=== PATIENT | female | born 1955 | race Caucasian/White ===

== ENCOUNTER → 2016-12-25 | Outpatient (CLI) | payer MEDICARE, OTHER ==
--- NOTE | 2016-12-25 11:13 | CT ---
EXAMINATION TYPE: CT urogram wo/w con DATE OF EXAM: 12/25/2016 8:51 AM COMPARISON: 10/27/2014 HISTORY: microscopic hematuria CT DLP: 833.8 mGycm Automated exposure control for dose reduction was used. TECHNIQUE: Axial images 5 mm thick sections. Postcontrast, reconstructed, and 3-D reconstructed image s performed on the DLS computer by the technologist are filmed and presented. FINDINGS: There appears to be symmetrical excretion through the bilateral kidneys. Proximal ureters visualized. Normal. The distal right ureter within the [id number] is normal. The distal left ureter is somewh at more limited but on additional sequences appears normal. Urinary bladder is visualized appears nor mal. Limited CT CT sections are obtained through the lung bases. Minimal atelectasis is within the depend ent right lung base. CT ABDOMEN: Liver and spleen are normal density without discrete masses or cysts. Gallbladder surgica lly absent. The pancreas is normal. Aorta and inferior vena cava are normal. Loops of bowel within t he abdomen and pelvis without oral contrast appear normal. Kidneys appear normal without masses cysts or hydronephrosis. No hydroureter is evident. No renal sto joya are identified. There is prompt uptake and excretion of contrast through the kidneys. A right ur eteral jet is identified during the exam. Loops of bowel are limited due to lack oral contrast. No suspicious abnormalities evident. Note is ma de of some diverticulosis within the sigmoid colon. Uterus appears normal. Adnexal regions are clear. IMPRESSION: NORMAL CT UROGRAM.
== END ==
LOC: RADCTMAIN 07:25
PROVIDERS: ATTEND Urology
DX: R31.29 Other microscopic hematuria (principal)
CPT/HCPCS: 74178; 74400; Q9967

== ENCOUNTER → 2017-09-06 | Outpatient (CLI) | payer MEDICARE, OTHER ==
--- NOTE | 2017-09-09 07:53 | MM ---
Reason for exam: screening (asymptomatic). Last mammogram was performed 1 year and 7 months ago. History: Patient is postmenopausal and has history of other cancer at age 62. Family history of breast cancer in paternal grandmother. MG discontinued stereo core RT of the right breast, March 21, 2016. Physical Findings: A clinical breast exam by your physician is recommended on an annual basis and results should be correlated with mammographic findings. MG 3D Diag Mammo W/Cad KRISTI Bilateral CC and MLO view(s) were taken. Prior study comparison: February 14, 2016, mammogram. February 10, 2016, mammogram. The breast tissue is heterogeneously dense. This may lower the sensitivity of mammography. The questioned upper outer quadrant focal asymmetry right breast is unchanged. On MLO it has the appearance of normal fibroglandular tissue. No significant new findings when compared with previous films. These results were verbally communicated with the patient and result sheet given to the patient on 09/06/17. ASSESSMENT: Negative, BI-RAD 1 RECOMMENDATION: Routine screening mammogram of both breasts in 1 year.
== END | disposition home or self-care (01) ==
LOC: RADMAMWWP 13:04
PROVIDERS: ATTEND Family Medicine
DX: R92.2 Inconclusive mammogram (principal)
CPT/HCPCS: G0204; G0279

== ENCOUNTER 2019-06-19 11:20 | Day surgery (SDC) | payer MEDICARE, OTHER ==
[2019-06-17 08:54] VITALS: BMI 23.2
[~2019-06-19 11:20] MED LIST: LACTATED RINGERS 1,000 ML IV SCH; LIDOCAINE 1% 20 ML VIAL (10MG/ML) FOR IV START INTRADERMA PRN
[2019-06-19 11:38] VITALS: RESP 16; TEMP 98.6
[2019-06-19] MEDS ORDERED: ONDANSETRON 4 MG/2 ML VIAL IVP ONE (11:44)
[2019-06-19] MEDS ORDERED: LIDOCAINE 1% INJ 10MG/ML (20 ML MDV) ONE (11:46)
[2019-06-19] MEDS ORDERED: PROPOFOL 10 MG/ML 20 ML VIAL IV ONE (11:46)
--- NOTE | 2019-06-19 11:56 | P.GSHP ---
History of Present Illness H&P Date: 06/19/19 Chief Complaint: Change in bowel habits 64-year-old female here today for colonoscopy. Patient describes frequent diarrhea. Seems to be aggravated by certain foods. History of prior cholecystectomy. No rectal bleeding or melena. Last colonoscopy 10 years ago per the study was normal. Family history of celiac disease. Past Medical History Past Medical History: Cancer, COPD, Rheumatoid Arthritis (RA) Additional Past Medical History / Comment(s): BLADDER CANCER History of Any Multi-Drug Resistant Organisms: None Reported Past Surgical History: Bladder Surgery, Section, Cholecystectomy, Orthopedic Surgery, Tubal Ligation Additional Past Surgical History / Comment(s): SURGERY SX FOR BLADDER CANCER. COLONOSCOPY/EGD. RT WRIST TENDON TRANSFER. RT KNEE SX Past Anesthesia/Blood Transfusion Reactions: Postoperative Nausea & Vomiting (PONV) Smoking Status: Current every day smoker - Past Family History Mother Family Medical History: No Reported History Medications and Allergies Home Medications Medication Instructions Recorded Confirmed Type Naproxen Sodium [Aleve] 220 mg PO BID 06/17/19 06/19/19 History Escitalopram [Lexapro] 10 mg PO DAILY 06/19/19 06/19/19 History Allergies Allergy/AdvReac Type Severity Reaction Status Date / Time No Known Allergies Allergy Verified 06/19/19 11:33 Surgical - Exam Vital Signs Temp Pulse Resp BP Pulse Ox 98.6 F 104 H 16 129/92 99 06/19/19 11:37 06/19/19 11:37 06/19/19 11:37 06/19/19 11:37 06/19/19 11:37 Physical exam: General: Well-developed, well-nourished HEENT: Normocephalic, sclerae nonicteric Abdomen: Nontender, nondistended Extremities: No edema Neuro: Alert and oriented Assessment and Plan (1) Change in bowel habits Narrative/Plan: Will proceed with colonoscopy at this time. Current Visit: Yes Status: Acute Code(s): R19.4 - CHANGE IN BOWEL HABIT SNOMED Code(s): 692311192
--- NOTE | 2019-06-19 12:18 | P.PCN ---
Date of Procedure: 06/19/19 Procedure(s) Performed: PREOPERATIVE DIAGNOSIS: Change in bowel habits, chronic diarrhea POSTOPERATIVE DIAGNOSIS: Diverticulosis PROCEDURE: Colonoscopy with random biopsy ANESTHESIA: [facility] [place] SURGEON: Kenneth Polo M.D. SPECIMENS: Random biopsies ENDOSCOPIC PROCEDURE: The patient was placed on the endoscopy table in the left decubitus position. The Olympus colonoscope was inserted into the anus and passed under direct visualization to the base of the cecum. The appendiceal orifice was visualized. From that point the scope was slowly withdrawn inspecting all surfaces carefully. There were no neoplastic inflammatory or polypoid lesions throughout the cecum, ascending, transverse, descending, sigmoid and rectum. There was artery left-sided diverticulosis noted. Random biopsies were taken throughout the colon to evaluate for microscopic colitis. Digital rectal examination was normal. The patient was taken to the recovery room in stable condition per anesthesia guidelines. RECOMMENDATIONS: Await biopsy results. Add Davidaran for complaints of diarrhea.
[2019-06-19 12:36] VITALS: BP 129/68; PULSE 72
== END 2019-06-19 12:55 | disposition home or self-care (01) ==
LOC: ORWHC2ENDO 11:20
PROVIDERS: ATTEND Surgery
DX: K57.30 Diverticulosis of large intestine without perforation or abscess without bleeding (principal); F17.200 Nicotine dependence, unspecified, uncomplicated; M06.9 Rheumatoid arthritis, unspecified; Z79.899 Other long term (current) drug therapy; Z85.51 Personal history of malignant neoplasm of bladder; Z90.49 Acquired absence of other specified parts of digestive tract; F39 Unspecified mood [affective] disorder
CPT/HCPCS: 88305; 45380; J2405; J2001; J2704

== ENCOUNTER → 2020-03-23 | Outpatient (CLI) | payer MEDICARE ==
--- NOTE | 2020-03-23 10:50 | XR ---
EXAMINATION TYPE: XR IVP DATE OF EXAM: 03/23/2020 COMPARISON: None HISTORY: Bladder cancer, hematuria TECHNIQUE: Receptionist Clerk view, overhead radiographs. FINDINGS: Single Receptionist Clerk view was obtained. Scoliosis is present. Receptionist Clerk view is noncontributory. Following the intravenous administration of contrast multiple overhead radiographs were obtained. There is prompt uptake and excretion of the contrast through the bilateral kidneys. Renal calyces, in fundibula and renal pelves appear normal. No filling defects are evident. Sequential images through the ureters are performed. Both oblique views are obtained. On sequential i mages the ureters appear normal without filling defects. There is likely a retrovascular ureter on th e right at the level of the pelvic inlet. Urinary bladder as visualized appears normal. No obvious filling defect is evident. There appears to be normal post void volume. IMPRESSION: 1. Normal IVP. 2. A suspicious etiology to account for the patient's hematuria is not identified.
== END | disposition home or self-care (01) ==
LOC: RADFLMAIN 09:02
PROVIDERS: ATTEND Urology
DX: R31.1 Benign essential microscopic hematuria (principal); C67.9 Malignant neoplasm of bladder, unspecified
CPT/HCPCS: 74400; Q9967

== ENCOUNTER → 2020-09-20 | Outpatient (CLI) | payer MEDICARE ==
[2020-09-20 12:39] LABS: African American GFR (CKD) >90 (>60 ml/min/1.73 sqM); Blood Urea Nitrogen 23 mg/dL (7-17); Non-African American GFR(CKD) >90 (>60 ml/min/1.73 sqM)
--- NOTE | 2020-09-20 14:18 | CT ---
EXAMINATION TYPE: CT urogram wo/w con DATE OF EXAM: 09/20/2020 HISTORY: Hematuria, hx of bladder CA CT DLP: 1947mGycm Automated Exposure Control for Dose Reduction was Utilized. CONTRAST: CT scan of the abdomen and pelvis is performed without oral and without and with IV Contrast, patient injected with 100 mL of Isovue 300. Urogram protocol with 3-D reconstructed images created on an [employer] workstation and reviewed. COMPARISON: CT urogram December 25, 2016. FINDINGS: KUB: Noncontrast images show no renal calculi bilaterally on current study. Postcontrast images show symmetric cortical medullary uptake and excretion without concerning solid or cystic renal mass or hy dronephrosis seen bilaterally. Visualized portion of both ureters show no suspicious mass or calculus . Incomplete opacification of bilateral ureters especially left noted. Few scattered bilateral pelvic phleboliths redemonstrated. No suspicious intraluminal mass or calculus in the bladder. LUNG BASES: Mild bibasilar linear scarring and/or atelectasis LIVER/GB: Cholecystectomy clips are redemonstrated. PANCREAS: No significant abnormality is seen. SPLEEN: No significant abnormality is seen. ADRENALS: No significant abnormality is seen. BOWEL: Some diverticula scattered throughout the colon greatest in the sigmoid colon. No suspicious b owel dilatation. UTERUS/ADNEXA: Anteverted uterus redemonstrated. LYMPH NODES: No greater than 1cm abdominal or pelvic lymph nodes are appreciated. OSSEOUS STRUCTURES: There is levoconvex scoliosis centered at L3-L4 level. Moderate to severe disc sp azeb narrowing and vacuum disc phenomenon L4-L5 and L5-S1 levels. OTHER: Mild Calcified plaque of the aorta extends into branch vessels. IMPRESSION: No suspicious new mass or calculus or source of hematuria identified. No significant bellamy ge from prior study. LUNG BASES: No significant abnormality is appreciated. LIVER/GB: No significant abnormality is appreciated. PANCREAS: No significant abnormality is seen. SPLEEN: No significant abnormality is seen. ADRENALS: No significant abnormality is seen. KIDNEYS: No significant abnormality is seen. BOWEL: No significant abnormality is seen. UTERUS/ADNEXA: No gross abnormality seen. LYMPH NODES: No greater than 1cm abdominal or pelvic lymph nodes are appreciated. OSSEOUS STRUCTURES: No significant abnormality is seen. OTHER: No significant additional abnormality is seen. IMPRESSION: No significant acute finding is seen to account for patient's clinical symptoms.
== END | disposition home or self-care (01) ==
LOC: RADCTMAIN 12:00
PROVIDERS: ATTEND Urology
DX: R31.9 Hematuria, unspecified (principal); D49.4 Neoplasm of unspecified behavior of bladder
CPT/HCPCS: 82565; 84520; 74178; 36415; 74400; Q9967

== ENCOUNTER 2021-04-25 18:35 | Emergency (ER) | payer MEDICARE ==
[2021-04-25 19:01] VITALS: RESP 18
[2021-04-25] MEDS ORDERED: methylPREDNISolone SOD SUCCI 125 MG/2 ML VIAL IM ONE (20:12)
--- NOTE | 2021-04-25 20:14 | ED ---
General Adult HPI - General Chief complaint: Recheck/Abnormal Lab/Rx Stated complaint: Rheumatoid Arthritis Flare-Up Time Seen by Provider: 04/25/21 19:12 Source: patient Mode of arrival: ambulatory Limitations: no limitations - History of Present Illness Initial comments: 65-year-old female patient presents to the emergency department today for evaluation of joint pain. States she is a history of rheumatoid arthritis and feels that she is having a flare. States symptoms of worsening symptoms around December. States that she generally just takes Aleve for her symptoms. Does not currently see a sports management professor nor does she have a primary care physician. She states that she has pain in her neck, shoulders, wrists, and ankles. States this is consistent with her usual rheumatoid arthritis symptoms. Denies any fever or chills. Denies any redness over the joints. Denies any injuries. Patient denies any recent rash, cough, shortness of breath, chest pain, abdominal pain, nausea, vomiting, diarrhea, constipation, numbness, tingling, dizziness, weakness, hematuria, dysuria, urinary urgency, urinary frequency, headache, visual changes, or any other complaints. - Related Data Home Medications Medication Instructions Recorded Confirmed Naproxen Sodium [Aleve] 220 mg PO BID 06/17/19 06/19/19 Escitalopram [Lexapro] 10 mg PO DAILY 06/19/19 06/19/19 Previous Rx's Medication Instructions Recorded Cholestyramine (with Sugar) 4 gm PO AC-TID #30 gm 06/19/19 [Questran Powder] predniSONE 50 mg PO DAILY #5 tablet 04/25/21 Allergies Allergy/AdvReac Type Severity Reaction Status Date / Time No Known Allergies Allergy Verified 04/25/21 18:58 Review of Systems ROS Statement: Those systems with pertinent positive or pertinent negative responses have been documented in the HPI. ROS Other: All systems not noted in ROS Statement are negative. Past Medical History Past Medical History: Cancer, COPD, Rheumatoid Arthritis (RA) Additional Past Medical History / Comment(s): BLADDER CANCER History of Any Multi-Drug Resistant Organisms: None Reported Past Surgical History: Bladder Surgery, Section, Cholecystectomy, Orthopedic Surgery, Tubal Ligation Additional Past Surgical History / Comment(s): SURGERY SX FOR BLADDER CANCER. COLONOSCOPY/EGD. RT WRIST TENDON TRANSFER. RT KNEE SX Past Anesthesia/Blood Transfusion Reactions: Postoperative Nausea & Vomiting (PONV) Past Psychological History: Anxiety, Depression Past Alcohol Use History: None Reported Past Drug Use History: None Reported - Past Family History Mother Family Medical History: No Reported History General Exam Limitations: no limitations General appearance: alert, in no apparent distress, other (This is a well- developed, well-nourished adult female patient in no acute distress. Vital signs upon presentation are temperature 97.3F, pulse 98, respirations 18, blood pressure 132/77, pulse ox 98% on room air.) ENT exam: Present: normal exam, normal oropharynx, mucous membranes moist Respiratory exam: Present: normal lung sounds bilaterally. Absent: respiratory distress, wheezes, rales, rhonchi, stridor Cardiovascular Exam: Present: regular rate, irregular rhythm, normal heart sounds. Absent: systolic murmur, diastolic murmur, rubs, gallop, clicks GI/Abdominal exam: Present: soft, normal bowel sounds. Absent: distended, tenderness, guarding, rebound, rigid Extremities exam: Present: normal inspection, full ROM, normal capillary refill, joint swelling, other (Skin to the arms and legs is pink, warm, dry. Cap refill less than 3 seconds. Radial pulses 2+ Pedal and posttibial pulses are 2+). Absent: tenderness, pedal edema, calf tenderness Neurological exam: Present: alert, oriented X3, CN II-XII intact Psychiatric exam: Present: normal affect, normal mood Skin exam: Present: warm, dry, intact, normal color. Absent: rash Course Vital Signs 04/25/21 04/25/21 18:58 20:31 Temperature 97.3 F L 97.9 F Pulse Rate 98 94 Respiratory 18 18 Rate Blood Pressure 132/77 132/71 O2 Sat by Pulse 98 98 Oximetry EKG Findings - EKG Comments: EKG Findings:: EKG obtained at 2005 shows normal sinus rhythm with a ventricular rate of 90, TN interval 144, QRS duration 84, QT 378, QTC 462. No evidence of ST elevation or depression Medical Decision Making - Medical Decision Making 65-year-old female patient presented for evaluation of joint pain. Has history of rheumatoid arthritis. Physical examination did reveal some joint swelling with no overlying erythema. She is afebrile with normal vital signs. Heart sounds were irregular so EKG was obtained that showed sinus rhythm with no abnormalities. She will be discharged with burst of steroids. She is given IM site Medrol here. She is instructed to follow-up with a primary care physician sports management professor as soon as possible. Return parameters were discussed in detail. She verbalizes understanding and agrees with this plan. Case discussed with my attending Dr. Munroe. Disposition Clinical Impression: Rheumatoid arthritis flare Disposition: HOME SELF-CARE Condition: Good Instructions (If sedation given, give patient instructions): Rheumatoid Art hritis (ED) Additional Instructions: Take medications as directed. Make sure you take steroids with a meal. Follow- up with the sports management professor as soon as possible. Establish with a primary care physician. Return for any new, worsening, or concerning symptoms. Prescriptions: predniSONE 50 mg PO DAILY #5 tablet Is patient prescribed a controlled substance at d/c from ED?: No Referrals: None,Stated [Primary Care Provider] - 1-2 days Time of Disposition: 20:14
[2021-04-25] MEDS ORDERED: DICLOFENAC SODIUM GEL 100 GM TUBE TOPICAL STA (20:26)
[2021-04-25 20:32] VITALS: BP 132/71; PULSE 94; TEMP 97.9
== END 2021-04-25 20:42 | disposition home or self-care (01) ==
LOC: EC 18:35
DX: M06.9 Rheumatoid arthritis, unspecified (principal); J44.9 Chronic obstructive pulmonary disease, unspecified; F32.9 Major depressive disorder, single episode, unspecified; F41.9 Anxiety disorder, unspecified
CPT/HCPCS: 93005; 99283; 96372; J2930

== ENCOUNTER 2022-05-24 18:30 | Emergency (ER) | payer MEDICARE ==
[2022-05-24 19:00] VITALS: RESP 16; TEMP 98.4
[2022-05-24] MEDS ORDERED: SODIUM CHLORIDE 0.9% 500 ML 500 ML IV STA (19:46)
--- NOTE | 2022-05-24 19:46 | ED ---
Abdominal Pain HPI - General Chief Complaint: Abdominal Pain Stated Complaint: abd pain Time Seen by Provider: 05/24/22 19:37 Source: patient, RN notes reviewed, old records reviewed Mode of arrival: ambulatory Limitations: no limitations - History of Present Illness Initial Comments: This is a well-appearing 67-year-old female that presents alert and oriented 4 with complaints of abdominal bloating for the past few months. Patient states that she has seen her primary care doctor who states thatit may be an ulcer. She has been trying Metamucil with no results. She does have a history of a cholecystectomy. She states she had a bladder resection for bladder cancer [address] Combs. She denies any fevers. Denies nausea or vomiting. She states that she is concerned that the cancer may be spreading causinsg her bloating. MD Complaint: abdominal pain -: month(s) (2) Location: diffuse Radiation: none Severity scale (1-10): 3 Quality: fullness, other (bloated) Consistency: constant Improves With: nothing Worsens With: nothing Context: recent surgery/procedure (Bladder resection for bladder cancer 3 weeks ago) Associated Symptoms: denies other symptoms - Related Data Home Medications Medication Instructions Recorded Confirmed Naproxen Sodium [Aleve] 220 mg PO BID 06/17/19 06/19/19 Escitalopram [Lexapro] 10 mg PO DAILY 06/19/19 06/19/19 Previous Rx's Medication Instructions Recorded Cholestyramine (with Sugar) 4 gm PO AC-TID #30 gm 06/19/19 [Questran Powder] predniSONE 50 mg PO DAILY #5 tablet 04/25/21 Allergies Allergy/AdvReac Type Severity Reaction Status Date / Time No Known Allergies Allergy Verified 05/24/22 18:59 Review of Systems ROS Statement: Those systems with pertinent positive or pertinent negative responses have been documented in the HPI. ROS Other: All systems not noted in ROS Statement are negative. Past Medical History Past Medical History: Cancer, COPD, Rheumatoid Arthritis (RA) Additional Past Medical History / Comment(s): BLADDER CANCER History of Any Multi-Drug Resistant Organisms: None Reported Past Surgical History: Bladder Surgery, Section, Cholecystectomy, Orthopedic Surgery, Tubal Ligation Additional Past Surgical History / Comment(s): SURGERY SX FOR BLADDER CANCER. COLONOSCOPY/EGD. RT WRIST TENDON TRANSFER. RT KNEE SX Past Anesthesia/Blood Transfusion Reactions: Postoperative Nausea & Vomiting (PONV) Past Psychological History: Anxiety, Depression Smoking Status: Current every day smoker Past Alcohol Use History: None Reported Past Drug Use History: None Reported - Past Family History Mother Family Medical History: No Reported History General Exam Limitations: no limitations General appearance: alert, in no apparent distress Head exam: Present: atraumatic, normocephalic Eye exam: Absent: scleral icterus, conjunctival injection Neck exam: Present: full ROM. Absent: tenderness, meningismus Respiratory exam: Present: normal lung sounds bilaterally. Absent: respiratory distress, accessory muscle use Cardiovascular Exam: Present: regular rate GI/Abdominal exam: Present: soft, distended, normal bowel sounds. Absent: tenderness, guarding, rebound, rigid Extremities exam: Present: full ROM, normal capillary refill. Absent: tenderness, pedal edema Back exam: Absent: tenderness, CVA tenderness (R), CVA tenderness (L) Neurological exam: Present: alert, oriented X3 Psychiatric exam: Present: normal affect, normal mood Skin exam: Present: warm, dry, normal color. Absent: cyanosis, diaphoretic, petechiae, pallor Course Vital Signs 05/24/22 05/24/22 18:56 21:54 Temperature 98.4 F Pulse Rate 94 72 Respiratory 16 16 Rate Blood Pressure 148/72 130/90 O2 Sat by Pulse 99 95 Oximetry Medical Decision Making - Medical Decision Making Patient presents with 2 months of abdominal bloating. She does have a history of bladder surgery with a resection approximately [address] Combs Labs show no evidence of leukocytosis. Electrolytes are unremarkable. Urinalysis shows no evidence of infection or dehydration. She denies any vomiting or diarrhea. CT of the abdomen and pelvis with contrast shows no acute abnormality. There is hepatic steatosis with evidence of cholecystectomy. Patient states that she also weaned herself off her Cymbalta recently which may be the cause of her symptoms. Vital signs are stable. I did direct her to follow up with primary care doctor within the next week. Case discussed with Dr. Chamorro - Lab Data Result diagrams: 05/24/22 20:05/24/22 20:01 Lab Results 05/24/22 05/24/22 05/24/22 Range/Units 20:01 20:01 20:01 WBC 9.9 (3.8-10.6) k/uL RBC 4.95 (3.80-5.40) m/uL Hgb 14.4 (11.4-16.0) gm/dL Hct 45.0 (34.0-46.0) % MCV 91.0 (80.0-100.0) fL MCH 29.0 (25.0-35.0) pg MCHC 31.9 (31.0-37.0) g/dL RDW 14.0 (11.5-15.5) % Plt Count 244 (150-450) k/uL MPV 8.1 Neutrophils % 73 % Lymphocytes % 17 % Monocytes % 5 % Eosinophils % 2 % Basophils % 1 % Neutrophils # 7.2 (1.3-7.7) k/uL Lymphocytes # 1.6 (1.0-4.8) k/uL Monocytes # 0.5 (0-1.0) k/uL Eosinophils # 0.2 (0-0.7) k/uL Basophils # 0.1 (0-0.2) k/uL PT 9.8 (9.0-12.0) sec INR 0.9 (<1.2) APTT 25.5 (22.0-30.0) sec Sodium (137-145) mmol/L Potassium (3.5-5.1) mmol/L Chloride (98-107) mmol/L Carbon Dioxide (22-30) mmol/L Anion Gap mmol/L BUN (7-17) mg/dL Creatinine (0.52-1.04) mg/dL Est GFR (CKD-EPI)AfAm (>60 ml/min/1.73 sqM) Est GFR (CKD-EPI)NonAf (>60 ml/min/1.73 sqM) Glucose (74-99) mg/dL Plasma Lactic Acid Valentín (0.7-2.0) mmol/L Calcium (8.4-10.2) mg/dL Total Bilirubin (0.2-1.3) mg/dL AST (14-36) U/L ALT (4-34) U/L Alkaline Phosphatase (38-126) U/L Total Protein (6.3-8.2) g/dL Albumin (3.5-5.0) g/dL Amylase (30-110) U/L Lipase (23-300) U/L Urine Color Colorless Urine Appearance Clear (Clear) Urine pH 6.0 (5.0-8.0) Ur Specific Nevis 1.003 (1.001-1.035) Urine Protein Negative (Negative) Urine Glucose (UA) Negative (Negative) Urine Ketones Negative (Negative) Urine Blood Small H (Negative) Urine Nitrite Negative (Negative) Urine Bilirubin Negative (Negative) Urine Urobilinogen <2.0 (<2.0) mg/dL Ur Leukocyte Esterase Negative (Negative) Urine RBC 1 (0-5) /hpf Urine WBC <1 (0-5) /hpf Ur Squamous Epith Cells 1 (0-4) /hpf 05/24/22 05/24/22 Range/Units 20:01 20:01 WBC (3.8-10.6) k/uL RBC (3.80-5.40) m/uL Hgb (11.4-16.0) gm/dL Hct (34.0-46.0) % MCV (80.0-100.0) fL MCH (25.0-35.0) pg MCHC (31.0-37.0) g/dL RDW (11.5-15.5) % Plt Count (150-450) k/uL MPV Neutrophils % % Lymphocytes % % Monocytes % % Eosinophils % % Basophils % % Neutrophils # (1.3-7.7) k/uL Lymphocytes # (1.0-4.8) k/uL Monocytes # (0-1.0) k/uL Eosinophils # (0-0.7) k/uL Basophils # (0-0.2) k/uL PT (9.0-12.0) sec INR (<1.2) APTT (22.0-30.0) sec Sodium 142 (137-145) mmol/L Potassium 4.0 (3.5-5.1) mmol/L Chloride 106 (98-107) mmol/L Carbon Dioxide 26 (22-30) mmol/L Anion Gap 10 mmol/L BUN 14 (7-17) mg/dL Creatinine 0.86 (0.52-1.04) mg/dL Est GFR (CKD-EPI)AfAm 82 (>60 ml/min/1.73 sqM) Est GFR (CKD-EPI)NonAf 71 (>60 ml/min/1.73 sqM) Glucose 81 (74-99) mg/dL Plasma Lactic Acid Valentín 0.8 (0.7-2.0) mmol/L Calcium 9.3 (8.4-10.2) mg/dL Total Bilirubin 0.3 (0.2-1.3) mg/dL AST 24 (14-36) U/L ALT 15 (4-34) U/L Alkaline Phosphatase 102 (38-126) U/L Total Protein 7.3 (6.3-8.2) g/dL Albumin 4.4 (3.5-5.0) g/dL Amylase 89 (30-110) U/L Lipase 104 (23-300) U/L Urine Color Urine Appearance (Clear) Urine pH (5.0-8.0) Ur Specific Nevis (1.001-1.035) Urine Protein (Negative) Urine Glucose (UA) (Negative) Urine Ketones (Negative) Urine Blood (Negative) Urine Nitrite (Negative) Urine Bilirubin (Negative) Urine Urobilinogen (<2.0) mg/dL Ur Leukocyte Esterase (Negative) Urine RBC (0-5) /hpf Urine WBC (0-5) /hpf Ur Squamous Epith Cells (0-4) /hpf Disposition Clinical Impression: Abdominal pain Disposition: HOME SELF-CARE Condition: Good Instructions (If sedation given, give patient instructions): Abdominal Pain (ED) Additional Instructions: Please follow-up with your primary care doctor within the next week to discuss your symptoms of bloating and abdominal pain. Let your primary care doctor know that you stopped taking your Cymbalta. Today your CT scan and blood work showed no areas of concern. Return to the emergency room with any new or concerning symptoms. Is patient prescribed a controlled substance at d/c from ED?: No Referrals: Paul Villanueva MD [Primary Care Provider] - 1-2 days Time of Disposition: 21:41
[2022-05-24] MEDS ORDERED: MORPHINE SULFATE 2 MG/ML SYRINGE IVP ONE (19:48)
[2022-05-24 20:15] LABS: Basophils # (A) 0.1 k/uL (0-0.2); Basophils % (A) 1 %; Eosinophils # (A) 0.2 k/uL (0-0.7); Eosinophils % (A) 2 %; HGB 14.4 gm/dL (11.4-16.0); Lymphocytes # (A) 1.6 k/uL (1.0-4.8); Lymphocytes % (A) 17 %; MCHC 31.9 g/dL (31.0-37.0); Mean Platelet Volume 8.1; Monocytes # (A) 0.5 k/uL (0-1.0); Monocytes % (A) 5 %; Neutrophils # (A) 7.2 k/uL (1.3-7.7); Neutrophils % (A) 73 %; Platelet Count 244 k/uL (150-450); RBC 4.95 m/uL (3.80-5.40); WBC 9.9 k/uL (3.8-10.6)
[2022-05-24 20:16] LABS: Appearance,Urine Clear (Clear); Bilirubin,Urine Negative (Negative); Blood,Urine Small (Negative); Color,Urine Colorless; Glucose,Urine (UA) Negative (Negative); Ketones,Urine Negative (Negative); Leukocyte Esterase,Urine Negative (Negative); Nitrite,Urine Negative (Negative); Protein,Urine Negative (Negative); RBC,Urine 1 /hpf (0-5); Specific Gravity,Urine 1.003 (1.001-1.035); Squamous Epithelial Cell,Urine 1 /hpf (0-4); Urobilinogen,Urine <2.0 mg/dL (<2.0); WBC,Urine <1 /hpf (0-5)
[2022-05-24 20:24] LABS: Albumin 4.4 g/dL (3.5-5.0); Calcium 9.3 mg/dL (8.4-10.2); Total Bilirubin 0.3 mg/dL (0.2-1.3); Total Protein 7.3 g/dL (6.3-8.2)
[2022-05-24 20:59] LABS: INR 0.9 (<1.2); Partial Thromboplastin Time 25.5 sec (22.0-30.0); Prothrombin Time 9.8 sec (9.0-12.0)
--- NOTE | 2022-05-24 21:20 | CT ---
EXAMINATION TYPE: CT abdomen pelvis w con DATE OF EXAM: 05/24/2022 COMPARISON: 12/25/2016 HISTORY: UPPER ABD BLOATING & PRESSURE X FEW MONTHS CT DLP: 675 mGycm Automated exposure control for dose reduction was used. TECHNIQUE: Helical acquisition of images was performed from the lung bases through the pelvis. CONTRAST: Performed without Oral Contrast and with IV Contrast, patient injected with 100 mL of Isovue 300. FINDINGS: LUNG BASES: No significant abnormality is appreciated. LIVER/GB: No acute abnormality is appreciated. Cholecystectomy. Common bile duct diameter is 6 mm. PANCREAS: No significant abnormality is seen. SPLEEN: No significant abnormality is seen. ADRENALS: No significant abnormality is seen. KIDNEYS: No significant abnormality is seen. FREE AIR: No free air is visualized. RETROPERITONEAL ADENOPATHY: None visualized REPRODUCTIVE ORGANS: No significant abnormality is seen URINARY BLADDER: No significant abnormality is seen. PELVIC ADENOPATHY: None visualized. OSSEOUS STRUCTURES: No acute abnormality is seen. Mild to moderate lumbar spondylosis with levoconve x curvature. BOWEL: No significant abnormality is seen. OTHER: None IMPRESSION: NO ACUTE ABNORMALITY. HEPATIC STEATOSIS AND CHOLECYSTECTOMY. Lumbar spondylosis with levoconvex curvature.
[2022-05-24 21:55] VITALS: BP 130/90; PULSE 72
== END 2022-05-24 21:55 | disposition home or self-care (01) ==
LOC: EC 18:30
DX: R10.9 Unspecified abdominal pain (principal); R14.0 Abdominal distension (gaseous); F17.200 Nicotine dependence, unspecified, uncomplicated; J44.9 Chronic obstructive pulmonary disease, unspecified; Z90.49 Acquired absence of other specified parts of digestive tract
CPT/HCPCS: 36415; 80053; 82150; 83605; 83690; 85025; 85610; 85730; 81001; 74177; 99284; 96374; 96361; J2270; Q9967

== ENCOUNTER → 2022-06-12 | Outpatient (CLI) | payer MEDICARE ==
--- NOTE | 2022-06-12 13:29 | US ---
EXAMINATION TYPE: US pelvis complete transvag DATE OF EXAM: 06/12/2022 COMPARISON: CT 05/24/2022 CLINICAL HISTORY: N95.0 POSTMENOPAUSAL BLEEDING. Postmenopausal bleeding. Hx of bladder cancer with s urgery. Hx twin gestation. A1. TECHNIQUE: Transvaginal (TV) and Transabdominal (TA) . Transabdominal sonographic images of the pel vis were acquired. Transvaginal sonographic images were medically necessary to better assess the fol lowing anatomy: Uterus and ovaries. Date of LMP: Unknown EXAM MEASUREMENTS: Uterus: 5.4 x 3.8 x 2.7 cm Endometrial Stripe: 0.40 cm Right Ovary: 2.8 x 1.3 x 1.2 cm Left Ovary: Not visualized. 1. Uterus: Anteverted Appears very heterogeneous. Hyperechoic calcified-appearing areas seen, larg est measures: 0.2 x 0.2 x 0.2 cm. 2. Endometrium: Measures 0.40 cm. Difficult to visualize. 3. Right Ovary: Appears wnl 4. Left Ovary: Not visualized. 5. Bilateral Adnexa: Appear wnl. 6. Posterior cul-de-sac: Minimal fluid seen. IMPRESSION: 1. No acute pelvic process. 2. Heterogenous uterine myometrium with echogenic foci. This may relate to uterine fibroids versus a denomyosis. 3. Nonvisualization of left ovary.
== END | disposition home or self-care (01) ==
LOC: RADUSWWP 12:15
PROVIDERS: ATTEND Family Medicine
DX: N95.0 Postmenopausal bleeding (principal)
CPT/HCPCS: 76830; 76856

== ENCOUNTER 2022-10-16 17:31 | Emergency (ER) | payer MEDICARE ==
[2022-10-16 17:40] VITALS: TEMP 98.6
--- NOTE | 2022-10-16 17:44 | ED ---
General Adult HPI <Juanita Harding - Last Filed: 10/16/22 17:35> - General Source: patient, RN notes reviewed Limitations: no limitations <Devan Ramirez - Last Filed: 10/16/22 19:31> - General Chief complaint: Dizziness Stated complaint: light headed - History of Present Illness Initial comments: Patient presents to the emergency room with complaints of lightheadedness ongoing since being placed on methotrexate approximately 2 months ago but her symptoms have worsened recently for approximately 5 days. 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 She reports that she is having some anxiety with the lightheadedness. She is unable to describe the lightheadedness well but denies the room is spinning. She denies any other specific complaints and reports generalized lightheadedness without any associated symptoms. She denies any loss of consciousness, headache or dizziness at that this time. She denies any other past medical history with exception of her rheumatoid arthritis. She denies any known exposure to cold influenza or RSV. (Juanita Harding) Patient reevaluated in the room. Patient states she is feeling better at this time however still anxious and not quite completely normal. Patient has been complaining of palpitations over the past week or 2 with associated lightheadedness. (Devan Ramirez) - Related Data Home Medications Medication Instructions Recorded Confirmed Naproxen Sodium [Aleve] 220 mg PO BID 06/17/19 06/19/19 Escitalopram [Lexapro] 10 mg PO DAILY 06/19/19 06/19/19 Previous Rx's Medication Instructions Recorded Cholestyramine (with Sugar) 4 gm PO AC-TID #30 gm 06/19/19 [Questran Powder] predniSONE 50 mg PO DAILY #5 tablet 04/25/21 Allergies Allergy/AdvReac Type Severity Reaction Status Date / Time No Known Allergies Allergy Verified 10/16/22 17:40 Review of Systems ROS Other: All systems not noted in ROS Statement are negative. <Juanita Harding - Last Filed: 10/16/22 17:35> ROS Other: All systems not noted in ROS Statement are negative. Cardiovascular: Reports: palpitations. Denies: chest pain Neurological: Denies: weakness, confusion Psychiatric: Reports: anxiety <Devan Ramirez - Last Filed: 10/16/22 19:31> ROS Statement: Those systems with pertinent positive or pertinent negative responses have been documented in the HPI. Past Medical History Past Medical History: Cancer, COPD, Rheumatoid Arthritis (RA) Additional Past Medical History / Comment(s): BLADDER CANCER History of Any Multi-Drug Resistant Organisms: None Reported Past Surgical History: Bladder Surgery, Section, Cholecystectomy, O rthopedic Surgery, Tubal Ligation Additional Past Surgical History / Comment(s): SURGERY SX FOR BLADDER CANCER. COLONOSCOPY/EGD. RT WRIST TENDON TRANSFER. RT KNEE SX Past Anesthesia/Blood Transfusion Reactions: Postoperative Nausea & Vomiting (PONV) Past Psychological History: Anxiety, Depression Smoking Status: Current every day smoker Past Alcohol Use History: None Reported Past Drug Use History: None Reported - Past Family History Mother Family Medical History: No Reported History <Juanita Harding - Last Filed: 10/16/22 17:35> General Exam Limitations: no limitations General appearance: alert, in no apparent distress Head exam: Present: normocephalic Eye exam: Present: normal appearance Neck exam: Present: normal inspection Respiratory exam: Present: normal lung sounds bilaterally Cardiovascular Exam: Present: regular rate, normal rhythm GI/Abdominal exam: Present: soft. Absent: tenderness Extremities exam: Present: normal inspection. Absent: pedal edema, calf tenderness Neurological exam: Present: alert Psychiatric exam: Present: normal affect, normal mood Skin exam: Present: normal color <Devan Ramirez - Last Filed: 10/16/22 19:31> Course <Devan Ramirez - Last Filed: 10/16/22 19:31> Vital Signs 10/16/22 10/16/22 17:34 18:00 Temperature 98.6 F Pulse Rate 153 H 99 Respiratory 18 18 Rate Blood Pressure 140/84 131/82 O2 Sat by Pulse 98 98 Oximetry - Reevaluation(s) Reevaluation #1: 10/16/22 18:33 Repeat EKG at 1807 shows sinus tachycardia 102. SD 133. SD is 90. QT 318. QTC 377. Normal axis. Incomplete right bundle-branch block. No acute ST-T. Interpreted by me (Devan Ramirez) EKG Findings - EKG Results: EKG: interpreted by ERMD (Regular narrow complex tachycardia, suspicious for S VT. Incomplete right bundle-branch block), normal axis, normal ST/T <Devan Ramirez - Last Filed: 10/16/22 19:31> Medical Decision Making - Lab Data Result diagrams: 10/16/22 17:42 10/16/22 17:42 <Devan Ramirez - Last Filed: 10/16/22 19:31> - Medical Decision Making Patient reevaluated and symptom-free. Heart rate 95. Patient updated on results and plan. Was pt. sent in by a medical professional or institution? @ -n Did you speak to anyone other than the patient for history? @ -n Did you review nursing and triage notes? @ -Yes and I agree Were old charts reviewed? @ -n Differential Diagnosis? @ -Differential Chest Pain: Stable Angina, Unstable Angina, STEMI, NSTEMI Aortic Dissection, Pneumothorax, Musculoskeletal, Esophageal Spasm GERD, Cholecystitis, Pancreatitis, Zoster, this is not meant to be an all-inclusive list. , Including arrhythmias, SVT, A. fib, atrial flutter, atrial tachycardia, other EKG interpreted by me (3pts min.)? @ -y X-rays interpreted by me (1pt min.)? @ -y CT interpreted by me (1pt min.)? @ -[none] U/S interpreted by me (1pt. min.)? @ -[none] What testing was considered but not performed? (CT, X-rays, U/S, labs)? Why? @ n What meds were considered but not given? Why? @ -Considered Cardizem or adenosine or similar however patient did convert on his own Did you discuss the management of the patient with other professionals? @ -n Did you reconcile home meds? @ -n Was smoking cessation discussed for >3mins.? @ -n Was critical care preformed (if so, how long)? @ -[none] Were there social determinants of health that impacted care today? How? (Homelessness, low income, unemployed, alcoholism, drug addiction, transportation, low edu. Level, literacy, decrease access to med. care, group home, rehab)? @ -n Was there de-escalation of care discussed even if they declined? (Discuss DNR or withdrawal of care, Hospice)? @ -n What co-morbidities impacted this encounter? (DM, HTN, Smoking, COPD, CAD, Cancer, CVA, Hep., AIDS, mental health diagnosis, sleep apnea, morbid obesity)? @ -n Was patient admitted / discharged? @ -Discharge Undiagnosed new problem with uncertain prognosis? @ -Diagnosis of SVT Drug Therapy requiring intensive monitoring for toxicity (Heparin, Nitro, Insulin, Cardizem)? @ -[none] Were any procedures done? @ -[none] Diagnosis/symptom? @ -SVT Acute, or Chronic, or Acute on Chronic? @ -Acute Uncomplicated (without systemic symptoms) or Complicated (systemic symptoms)? @ -Uncomplicated Side effects of treatment? @ -[none] Exacerbation, Progression, or Severe Exacerbation] @ -[no] Poses a threat to life or bodily function? @ -[Not at this time (Devan Ramirez) - Lab Data Lab Results 10/16/22 10/16/22 10/16/22 Range/Units 17:42 17:42 17:42 WBC 18.5 H (3.8-10.6) k/uL RBC 5.01 (3.80-5.40) m/uL Hgb 15.6 (11.4-16.0) gm/dL Hct 46.0 (34.0-46.0) % MCV 91.7 (80.0-100.0) fL MCH 31.0 (25.0-35.0) pg MCHC 33.8 (31.0-37.0) g/dL RDW 14.3 (11.5-15.5) % Plt Count 261 (150-450) k/uL MPV 9.1 Neutrophils % 84 % Lymphocytes % 10 % Monocytes % 5 % Eosinophils % 0 % Basophils % 0 % Neutrophils # 15.5 H (1.3-7.7) k/uL Lymphocytes # 1.8 (1.0-4.8) k/uL Monocytes # 0.9 (0-1.0) k/uL Eosinophils # 0.1 (0-0.7) k/uL Basophils # 0.1 (0-0.2) k/uL Sodium 140 (137-145) mmol/L Potassium 3.7 (3.5-5.1) mmol/L Chloride 109 H (98-107) mmol/L Carbon Dioxide 19 L (22-30) mmol/L Anion Gap 12 mmol/L BUN 15 (7-17) mg/dL Creatinine 0.64 (0.52-1.04) mg/dL Est GFR (CKD-EPI)AfAm >90 (>60 ml/min/1.73 sqM) Est GFR (CKD-EPI)NonAf >90 (>60 ml/min/1.73 sqM) Glucose 194 H (74-99) mg/dL Calcium 9.8 (8.4-10.2) mg/dL Total Bilirubin 0.6 (0.2-1.3) mg/dL AST 24 (14-36) U/L ALT 20 (4-34) U/L Alkaline Phosphatase 98 (38-126) U/L Troponin I <0.012 (0.000-0.034) ng/mL Total Protein 7.4 (6.3-8.2) g/dL Albumin 4.6 (3.5-5.0) g/dL - Radiology Data Interpreted by me: Chest x-ray shows no acute process (Devan Ramirez) Disposition <Juanita Harding - Last Filed: 10/16/22 17:35> Is patient prescribed a controlled substance at d/c from ED?: No Time of Disposition: 19:31 <Devan Ramirez - Last Filed: 10/16/22 19:31> Clinical Impression: SVT (supraventricular tachycardia) Disposition: HOME SELF-CARE Condition: Stable Instructions (If sedation given, give patient instructions): Supraventricular Tachycardia (ED) Additional Instructions: Please do follow-up with cardiology in the next couple days for recheck. Please also follow-up through primary care physician. Consider Holter monitor. Return for increased heart rate, pain or difficulty breathing, worsening symptoms or any other concerns. Referrals: Paul Villanueva MD [Primary Care Provider] - 1-2 days Amos Boyle MD [STAFF PHYSICIAN] - 1-2 days
[2022-10-16 18:16] LABS: Basophils # (A) 0.1 k/uL (0-0.2); Basophils % (A) 0 %; Eosinophils # (A) 0.1 k/uL (0-0.7); Eosinophils % (A) 0 %; HGB 15.6 gm/dL (11.4-16.0); Lymphocytes # (A) 1.8 k/uL (1.0-4.8); Lymphocytes % (A) 10 %; MCHC 33.8 g/dL (31.0-37.0); MCV 91.7 fL (80.0-100.0); Mean Platelet Volume 9.1; Monocytes # (A) 0.9 k/uL (0-1.0); Monocytes % (A) 5 %; Neutrophils # (A) 15.5 k/uL (1.3-7.7); Neutrophils % (A) 84 %; Platelet Count 261 k/uL (150-450); RBC 5.01 m/uL (3.80-5.40); RDW 14.3 % (11.5-15.5); WBC 18.5 k/uL (3.8-10.6)
[2022-10-16 18:27] LABS: ALT 20 U/L (4-34); AST 24 U/L (14-36); African American GFR (CKD) >90 (>60 ml/min/1.73 sqM); Albumin 4.6 g/dL (3.5-5.0); Alkaline Phosphatase 98 U/L (38-126); Anion Gap 12 mmol/L; Blood Urea Nitrogen 15 mg/dL (7-17); Calcium 9.8 mg/dL (8.4-10.2); Carbon Dioxide 19 mmol/L (22-30); Chloride 109 mmol/L (98-107); Glucose 194 mg/dL (74-99); Non-African American GFR(CKD) >90 (>60 ml/min/1.73 sqM); Potassium 3.7 mmol/L (3.5-5.1); Sodium 140 mmol/L (137-145); Total Bilirubin 0.6 mg/dL (0.2-1.3); Total Protein 7.4 g/dL (6.3-8.2)
[2022-10-16] MEDS ORDERED: LORazepam 2 MG/ML INJ IV STA (18:30)
--- NOTE | 2022-10-16 18:57 | XR ---
EXAMINATION TYPE: XR chest 2V DATE OF EXAM: 10/16/2022 COMPARISON: 09/18/2017 HISTORY: Palpitations TECHNIQUE: FINDINGS: Heart is normal. Lungs are clear. Diaphragm is normal. Bony thorax is intact. There are jaydon st leads. IMPRESSION: Normal chest. No change.
[2022-10-16 20:12] VITALS: BP 107/80; PULSE 90; RESP 18
== END 2022-10-16 20:17 | disposition home or self-care (01) ==
LOC: EC 17:31
DX: I47.1 Supraventricular tachycardia (principal); J44.9 Chronic obstructive pulmonary disease, unspecified; F41.9 Anxiety disorder, unspecified; F32.A Depression, unspecified; F17.200 Nicotine dependence, unspecified, uncomplicated
CPT/HCPCS: 93005; 80053; 84484; 85025; 71046; 99284; 96374; J2060; 36415

== ENCOUNTER 2023-04-23 19:45 | Observation (INO) | payer MEDICARE ==
--- NOTE | 2023-04-23 20:00 | ED ---
Arrhythmia/Palpitations HPI - General Source: patient, RN notes reviewed Mode of arrival: ambulatory Limitations: no limitations - History of Present Illness MD Complaint: rapid heart beat, "heart racing" <Jessica Corona - Last Filed: 04/23/23 20:00> - General Source: patient, RN notes reviewed Mode of arrival: ambulatory Limitations: no limitations <Devan Ramirez - Last Filed: 04/23/23 21:46> - General Chief Complaint: Arrhythmia/Palpitations Stated Complaint: increased heart rate Time Seen by Provider: 04/23/23 19:50 - History of Present Illness Initial Comments: This is a 67-year-old female who presents to the emergency department for concerns of an increased heart rate. States that just before this occurred, she started to feel very nauseous. Denies any chest pain. She does not have any cardiac history. She does have COPD, but states that the shortness of breath is not worse than usual. (Jessica Corona) Patient is a pleasant 67-year-old female presenting to the emergency department with concerns of palpitations. Onset of symptoms was prior to arrival. Patient has some mild associated anxiety. No chest pain. Patient does have history of similar symptoms a couple times previously and her doctor believe she has atrial fibrillation. Patient is not on any current anticoagulation. Upon the time patient arrived in the room she states her symptoms have significantly improved. (Devan Ramirez) - Related Data Home Medications Medication Instructions Recorded Confirmed Naproxen Sodium [Aleve] 220 mg PO BID 06/17/19 06/19/19 Escitalopram [Lexapro] 10 mg PO DAILY 06/19/19 06/19/19 Previous Rx's Medication Instructions Recorded Cholestyramine (with Sugar) 4 gm PO AC-TID #30 gm 06/19/19 [Questran Powder] predniSONE 50 mg PO DAILY #5 tablet 04/25/21 Allergies Allergy/AdvReac Type Severity Reaction Status Date / Time No Known Allergies Allergy Verified 04/23/23 19:52 Review of Systems ROS Other: All systems not noted in ROS Statement are negative. <Jessica Corona - Last Filed: 04/23/23 20:00> ROS Other: All systems not noted in ROS Statement are negative. Constitutional: Denies: fever Eyes: Denies: eye pain ENT: Denies: ear pain Respiratory: Denies: cough, dyspnea Cardiovascular: Reports: as per HPI, palpitations Endocrine: Denies: fatigue Gastrointestinal: Denies: abdominal pain <Devan Ramirez - Last Filed: 04/23/23 21:46> ROS Statement: Those systems with pertinent positive or pertinent negative responses have been documented in the HPI. Past Medical History Past Medical History: Cancer, COPD, Rheumatoid Arthritis (RA) Additional Past Medical History / Comment(s): BLADDER CANCER History of Any Multi-Drug Resistant Organisms: None Reported Past Surgical History: Bladder Surgery, Section, Cholecystectomy, Orthopedic Surgery, Tubal Ligation Additional Past Surgical History / Comment(s): SURGERY SX FOR BLADDER CANCER. COLONOSCOPY/EGD. RT WRIST TENDON TRANSFER. RT KNEE SX Past Anesthesia/Blood Transfusion Reactions: Postoperative Nausea & Vomiting (PONV) Past Psychological History: Anxiety, Depression Smoking Status: Current every day smoker Past Alcohol Use History: None Reported Past Drug Use History: None Reported - Past Family History Mother Family Medical History: No Reported History <Jessica Corona - Last Filed: 04/23/23 20:00> General Exam Limitations: no limitations <Jessica Corona - Last Filed: 04/23/23 20:00> Limitations: no limitations General appearance: alert, in no apparent distress Head exam: Present: normocephalic Eye exam: Present: normal appearance Neck exam: Present: normal inspection Respiratory exam: Present: normal lung sounds bilaterally Cardiovascular Exam: Present: tachycardia, irregular rhythm Expanded Peripheral pulses: 2+: Radial (R), Radial (L), Dorsalis Pedis (R), Dorsalis Pedis (L) GI/Abdominal exam: Present: soft. Absent: tenderness Extremities exam: Present: normal inspection Neurological exam: Present: alert Psychiatric exam: Present: normal affect, normal mood Skin exam: Present: normal color <Devan Ramirez - Last Filed: 04/23/23 21:46> - General Exam Comments Initial Comments: Visual Physical Exam Vital signs reviewed General: Well-appearing, nontoxic, no acute distress. Head: Normocephalic, atraumatic Eyes: PERRLA, EOMI ENT: Airway patent Chest: Nonlabored breathing Skin: No visual rash, normal skin tone Neuro: Alert and oriented 3 Musculoskeletal: No gross abnormalities (Jessica Corona) Course Vital Signs 0704/23/23 04/23/23 19:50 19:57 20:00 Temperature 98.7 F Pulse Rate 167 H 85 Pulse Rate [ 87 [place] ] Respiratory 18 16 Rate Blood Pressure 125/73 104/69 O2 Sat by Pulse 98 97 Oximetry EKG Findings - EKG Results: EKG: interpreted by ERMD (Nonspecific ST-T), normal axis, normal QRS EKG shows: tachycardia, atrial fibrillation <Devan Ramirez - Last Filed: 04/23/23 21:46> Medical Decision Making - Lab Data Result diagrams: 04/23/23 20:20 04/23/23 20:20 <eDvan Ramirez - Last Filed: 04/23/23 21:46> - Medical Decision Making Was pt. sent in by a medical professional or institution ([facility], POULTRY HUSBANDMAN, urgent care, hospital, or [place] health care facility...) When possible be specific @ -No Did you speak to anyone other than the patient for history (EMS, parent, family, police, friend...)? What history was obtained from this source @ -No Did you review nursing and triage notes (agree or disagree)? Why? @ -I reviewed and agree with nursing and triage notes Were old charts reviewed (outside hosp., previous admission, EMS record, old EKG, old radiological studies, urgent care reports/EKG's, [place] health care facility records)? Report findings @ -No old charts were reviewed Differential Diagnosis (chest pain, altered mental status, abdominal pain women, abdominal pain men, vaginal bleeding, weakness, fever, dyspnea, syncope, headache, dizziness, GI bleed, back pain, seizure, CVA, palpatations, mental health, musculoskeletal)? @ -Differential Palpitations Ventricular arrhythmias, atrial arrhythmias, myocardial infarction, anemia, thyrotoxicosis, electrolyte imbalance, hypokalemia, pulmonary embolism, pulmonary disease, drugs, alcohol, anxiety, stress.... This is not meant to be an all-inclusive list. EKG interpreted by me (3pts min.). @ -As above X-rays interpreted by me (1pt min.). @ -Chest x-ray shows no acute process CT interpreted by me (1pt min.). @ -None done U/S interpreted by me (1pt. min.). @ -None done What testing was considered but not performed or refused? (CT, X-rays, U/S, labs)? Why? @ -None What meds were considered but not given or refused? Why? @ -None Did you discuss the management of the patient with other professionals (professionals i.e. , PA, POULTRY HUSBANDMAN, lab, RT, psych nurse, social services designee, retail helper, teacher, compliance officer, case managers)? Give summary @ -Case discussed with practitioner Cirilo [place], who will admit covering hospital call. Was smoking cessation discussed for >3mins.? @ -No Was critical care preformed (if so, how long)? @ -33 minutes critical care time Were there social determinants of health that impacted care today? How? ([place] elessness, low income, unemployed, alcoholism, drug addiction, transportation, low edu. Level, literacy, decrease access to med. care, alf, rehab)? @ -No Was there de-escalation of care discussed even if they declined (Discuss DNR or withdrawal of care, Hospice)? DNR status @ -No What co-morbidities impacted this encounter? (DM, HTN, Smoking, COPD, CAD, Cancer, CVA, ARF, Chemo, Hep., AIDS, mental health diagnosis, sleep apnea, morbid obesity)? @ -None Was patient admitted / discharged? Hospital course, mention meds given and route, prescriptions, significant lab abnormalities, going to OR and other pertinent info. @ -Patient has jumped and out of A. fib several times. Patient be admitted to the hospital for further evaluation and cardiac Undiagnosed new problem with uncertain prognosis? @ -No Drug Therapy requiring intensive monitoring for toxicity (Heparin, Nitro, Insulin, Cardizem)? @ -Patient will require monitoring for Cardizem and heparin drips Were any procedures done? @ -No Diagnosis/symptom? @ -A. fib with RVR Acute, or Chronic, or Acute on Chronic? @ -Acute Uncomplicated (without systemic symptoms) or Complicated (systemic symptoms)? @ -default Side effects of treatment? @ -No Exacerbation, Progression, or Severe Exacerbation? @ -No Poses a threat to life or bodily function? How? (Chest pain, [place], [place], pneumonia, PE, COPD, DKA, ARF, appy, cholecystitis, CVA, Diverticulitis, Homicidal, Suicidal, threat to staff... and all critical care pts) @ -No (Devan Ramirez) - Lab Data Lab Results 04/23/23 04/23/23 04/23/23 Range/Units 20:20 20:20 20:20 WBC 9.9 (3.8-10.6) k/uL RBC 5.20 (3.80-5.40) m/uL Hgb 15.0 (11.4-16.0) gm/dL Hct 47.7 H (34.0-46.0) % MCV 91.6 (80.0-100.0) fL MCH 28.8 (25.0-35.0) pg MCHC 31.4 (31.0-37.0) g/dL RDW 13.7 (11.5-15.5) % Plt Count 247 (150-450) k/uL MPV 8.7 Neutrophils % 74 % Lymphocytes % 18 % Monocytes % 5 % Eosinophils % 2 % Basophils % 0 % Neutrophils # 7.3 (1.3-7.7) k/uL Lymphocytes # 1.8 (1.0-4.8) k/uL Monocytes # 0.5 (0-1.0) k/uL Eosinophils # 0.2 (0-0.7) k/uL Basophils # 0.0 (0-0.2) k/uL PT 9.6 (9.0-12.0) sec INR 0.9 (<1.2) APTT 24.1 (22.0-30.0) sec Sodium 142 (137-145) mmol/L Potassium 4.2 (3.5-5.1) mmol/L Chloride 108 H (98-107) mmol/L Carbon Dioxide 24 (22-30) mmol/L Anion Gap 10 mmol/L BUN 18 H (7-17) mg/dL Creatinine 0.68 (0.52-1.04) mg/dL Est GFR (CKD-EPI)AfAm >90 (>60 ml/min/1.73 sqM) Est GFR (CKD-EPI)NonAf >90 (>60 ml/min/1.73 sqM) Glucose 95 (74-99) mg/dL Calcium 9.6 (8.4-10.2) mg/dL Magnesium 2.3 (1.6-2.3) mg/dL Total Bilirubin 0.3 (0.2-1.3) mg/dL AST 25 (14-36) U/L ALT 21 (4-34) U/L Alkaline Phosphatase 119 (38-126) U/L Troponin I (0.000-0.034) ng/mL Total Protein 7.7 (6.3-8.2) g/dL Albumin 4.6 (3.5-5.0) g/dL TSH 1.550 (0.465-4.680) mIU/L Free T4 1.40 (0.78-2.19) ng/dL Free T3 pg/mL 4.5 (2.8-5.3) pg/ml 04/23/23 Range/Units 20:20 WBC (3.8-10.6) k/uL RBC (3.80-5.40) m/uL Hgb (11.4-16.0) gm/dL Hct (34.0-46.0) % MCV (80.0-100.0) fL MCH (25.0-35.0) pg MCHC (31.0-37.0) g/dL RDW (11.5-15.5) % Plt Count (150-450) k/uL MPV Neutrophils % % Lymphocytes % % Monocytes % % Eosinophils % % Basophils % % Neutrophils # (1.3-7.7) k/uL Lymphocytes # (1.0-4.8) k/uL Monocytes # (0-1.0) k/uL Eosinophils # (0-0.7) k/uL Basophils # (0-0.2) k/uL PT (9.0-12.0) sec INR (<1.2) APTT (22.0-30.0) sec Sodium (137-145) mmol/L Potassium (3.5-5.1) mmol/L Chloride (98-107) mmol/L Carbon Dioxide (22-30) mmol/L Anion Gap mmol/L BUN (7-17) mg/dL Creatinine (0.52-1.04) mg/dL Est GFR (CKD-EPI)AfAm (>60 ml/min/1.73 sqM) Est GFR (CKD-EPI)NonAf (>60 ml/min/1.73 sqM) Glucose (74-99) mg/dL Calcium (8.4-10.2) mg/dL Magnesium (1.6-2.3) mg/dL Total Bilirubin (0.2-1.3) mg/dL AST (14-36) U/L ALT (4-34) U/L Alkaline Phosphatase (38-126) U/L Troponin I <0.012 (0.000-0.034) ng/mL Total Protein (6.3-8.2) g/dL Albumin (3.5-5.0) g/dL TSH (0.465-4.680) mIU/L Free T4 (0.78-2.19) ng/dL Free T3 pg/mL (2.8-5.3) pg/ml Critical Care Time Critical Care Time: Yes Total Critical Care Time: 33 <Devan Ramirez - Last Filed: 04/23/23 21:46> Disposition <Jessica Corona - Last Filed: 04/23/23 20:00> Is patient prescribed a controlled substance at d/c from ED?: No Time of Disposition: 21:44 <Devan Ramirez - Last Filed: 04/23/23 21:46> Clinical Impression: Atrial fibrillation, Tachycardia Disposition: ADMITTED IP TO THIS HOSP Referrals: None,Stated [REFERRING] - 1-2 days
[2023-04-23] MEDS ORDERED: DILTIAZEM 125 MG in SODIUM CHLORIDE 0.9% 100 ML IV SCH (20:30)
[2023-04-23 20:38] LABS: Basophils % (A) 0 %; Eosinophils # (A) 0.2 k/uL (0-0.7); Eosinophils % (A) 2 %; HCT 47.7 % (34.0-46.0); Lymphocytes # (A) 1.8 k/uL (1.0-4.8); Lymphocytes % (A) 18 %; MCH 28.8 pg (25.0-35.0); MCHC 31.4 g/dL (31.0-37.0); MCV 91.6 fL (80.0-100.0); Mean Platelet Volume 8.7; Monocytes # (A) 0.5 k/uL (0-1.0); Monocytes % (A) 5 %; Neutrophils # (A) 7.3 k/uL (1.3-7.7); Neutrophils % (A) 74 %; Platelet Count 247 k/uL (150-450); RDW 13.7 % (11.5-15.5); WBC 9.9 k/uL (3.8-10.6)
[2023-04-23 20:45] LABS: INR 0.9 (<1.2); Partial Thromboplastin Time 24.1 sec (22.0-30.0); Prothrombin Time 9.6 sec (9.0-12.0)
[2023-04-23 20:46] LABS: ALT 21 U/L (4-34); AST 25 U/L (14-36); African American GFR (CKD) >90 (>60 ml/min/1.73 sqM); Albumin 4.6 g/dL (3.5-5.0); Alkaline Phosphatase 119 U/L (38-126); Anion Gap 10 mmol/L; Blood Urea Nitrogen 18 mg/dL (7-17); Calcium 9.6 mg/dL (8.4-10.2); Carbon Dioxide 24 mmol/L (22-30); Chloride 108 mmol/L (98-107); Glucose 95 mg/dL (74-99); Magnesium 2.3 mg/dL (1.6-2.3); Non-African American GFR(CKD) >90 (>60 ml/min/1.73 sqM); Potassium 4.2 mmol/L (3.5-5.1); Sodium 142 mmol/L (137-145); Total Bilirubin 0.3 mg/dL (0.2-1.3); Total Protein 7.7 g/dL (6.3-8.2)
--- NOTE | 2023-04-23 21:23 | XR ---
EXAMINATION TYPE: XR chest 2V DATE OF EXAM: 04/23/2023 9:17 PM COMPARISON: Chest radiographs from 10/16/2022 TECHNIQUE: XR chest 2V Frontal and lateral views of the chest. CLINICAL INDICATION:Female, 67 years old with history of dysrhythmia; FINDINGS: Lungs/Pleura: There is no evidence of pleural effusion, focal consolidation, or pneumothorax. Pulmonary vascularity: Unremarkable. Heart/mediastinum: Cardiomediastinal silhouette is unremarkable. Musculoskeletal: No acute osseous pathology. IMPRESSION: No acute cardiopulmonary disease/process.
[2023-04-23] MEDS ORDERED: ASPIRIN 81 MG PO STA (21:46)
[2023-04-23] MEDS ORDERED: HEPARIN SODIUM 1,000 UN/ML (10ML VL) IV ONE (21:46)
[2023-04-23] MEDS ORDERED: HEPARIN SOD,PORK IN 0.45% NACL 25,000 UNIT in 0.45% NACL 1 250ML.BAG IV SCH (22:00)
[2023-04-23] MEDS ORDERED: MELATONIN 5 MG TABLET PO PRN (23:46)
[2023-04-24 03:36] LABS: Mean Platelet Volume 8.9; Platelet Count 214 k/uL (150-450)
[2023-04-24] MEDS ORDERED: CYCLOBENZAPRINE 10 MG TAB PO PRN (08:09)
[2023-04-24] MEDS ORDERED: NON FORMULARY DRUG (Abatacept [Orencia] 125 MG/ML Syringe) SQ SCH (08:15)
[2023-04-24] MEDS ORDERED: ASPIRIN 325 MG TAB PO SCH (09:00)
[2023-04-24] MEDS: APIXABAN 5 MG TAB PO SCH ×2 (09:15→20:37)
[2023-04-24] MEDS: METOPROLOL TARTRATE 25 MG TAB PO SCH ×2 (09:15→20:37)
[2023-04-24 10:18] LABS: Chol/HDL Ratio 2.18 Ratio; LDL Cholesterol,Calculated 80.2 mg/dL (0.0-131.0); VLDL Calculation 16.02 mg/dL (5.00-40.00)
--- NOTE | 2023-04-24 10:51 | P.CRDCN ---
History of Present Illness History of present illness: HISTORY OF PRESENT ILLNESS: This is a 67-year-old female with a past medical history significant for rheumatoid arthritis. Patient follows in the office with Dr. Davila. We have been asked to see the patient in consultation for atrial fibrillation. Patient examined at the bedside. Patient presented to the hospital with a chief complaint of palpitations. She states that she felt sick to her stomach, shaky, and very anxious. She states that she checked her watch and noted her heart rate to be high. She denied any cough or fever. She denied any chest pain or pressure. Denied any syncope. She denies a prior history of hypertension, hyperlipidemia, or diabetes. She denies any alcohol use. She is a current service smoker. She states last year her primary care physician thought she had atrial fibrillation she was referred to see Dr. Davila. Patient underwent a Holter monitor which revealed 2 refer on to of nonsustained atrial tachycardia, PVCs, and PACs. No atrial fibrillation was noted at that time. * EKG reveals atrial fibrillation with RVR. Subsequent EKG reveals sinus mechanism * Chest xray negative for acute process * Laboratory data: WBC 9.9. Hemoglobin 15.0. Platelet count 247. Sodium 142. Potassium 4.2. BUN 18. Creatinine 0.68. Troponin negative 3. TSH 1.550. * Current home cardiac medications include none * Most recent echocardiogram obtained in February 2022 revealed ejection fraction 50- 55% * Patient underwent Lexiscan stress test in December 2021 which was negative for ischemia REVIEW OF SYSTEMS: At the time of my exam: CONSTITUTIONAL: Denies fever or chills. HEENT: Denies blurred vision, vision changes, or eye pain. Denies hemoptysis CARDIOVASCULAR: Denies chest pain. Denies orthopnea. Denies PND. Denies palpitations RESPIRATORY: Denies shortness of breath. GASTROINTESTINAL: Denies abdominal pain. Denies nausea or vomiting. HEMATOLOGIC: Denies bleeding disorders. GENITOURINARY: Denies any blood in urine. SKIN: Denies pruitis. Denies rash. PHYSICAL EXAM: VITAL SIGNS: Reviewed. GENERAL: Well-developed in no acute distress. HEENT: Head is normocephalic. Pupils are equal, round. Sclerae anicteric. Mucous membranes of the mouth are moist. Neck supple. No JVD or thyromegaly LUNGS: Respirations even and unlabored. Lungs essentially clear to auscultation bilaterally. HEART: Regular rate and rhythm. S1 and S2 heard. ABDOMEN: Soft. Nondistended. Nontender. EXTREMITIES: Normal range of motion. No clubbing or cyanosis. Peripheral pulses intact. No lower extremity edema NEUROLOGIC: Awake and alert. Oriented x 3. ASSESSMENT: Palpitations New-onset atrial fibrillation with RVR, currently maintaining sinus mechanism History of atrial tachycardia, PVCs, and PACs Rheumatoid arthritis PLAN: Obtain 2-D echo to assess cardiac short-term function TSH checked and within normal limits Discontinue IV heparin and IV Cardizem Begin metoprolol tartrate 25 mg twice a day Begin Eliquis 5mg BID Continue telemetry monitoring If echocardiogram does not reveal any significant abnormalities, the patient may be discharged home today and follow up on an outpatient basis Nurse practitioner note has been reviewed by physician. Signing provider agrees with the documented findings, assessment, and plan of care. Past Medical History Past Medical History: Cancer, COPD, Rheumatoid Arthritis (RA) Additional Past Medical History / Comment(s): BLADDER CANCER History of Any Multi-Drug Resistant Organisms: None Reported Past Surgical History: Bladder Surgery, Section, Cholecystectomy, Orthopedic Surgery, Tubal Ligation Additional Past Surgical History / Comment(s): SURGERY SX FOR BLADDER CANCER. COLONOSCOPY/EGD. RT WRIST TENDON TRANSFER. RT KNEE SX Past Anesthesia/Blood Transfusion Reactions: Postoperative Nausea & Vomiting (PONV) Past Psychological History: Anxiety, Depression Smoking Status: Current every day smoker Past Alcohol Use History: None Reported Past Drug Use History: None Reported - Past Family History Mother Family Medical History: No Reported History Medications and Allergies Home Medications Medication Instructions Recorded Confirmed Type Naproxen Sodium [Aleve] 220 mg PO BID PRN 06/17/19 04/23/23 History Abatacept [Orencia] 125 mg SQ WE 04/23/23 04/23/23 History Acetaminophen Tab [Tylenol Tab] 1,000 mg PO Q6H PRN 04/23/23 04/23/23 History Cyclobenzaprine [Flexeril] 10 mg PO HS PRN 04/23/23 04/23/23 History Allergies Allergy/AdvReac Type Severity Reaction Status Date / Time No Known Allergies Allergy Verified 04/23/23 22:52 Physical Exam Vitals: Vital Signs Temp Pulse Pulse Resp BP BP Pulse Ox 04/24/23 08:00 98.4 F 62 17 107/62 99 04/24/23 04:00 63 14 103/62 96 04/24/23 01:00 65 16 97/58 94 L 04/23/23 23:00 69 16 106/60 96 04/23/23 20:00 85 16 104/69 97 04/23/23 19:57 87 04/23/23 19:50 98.7 F 167 H 18 125/73 98 Intake and Output 04/23/23 04/24/23 04/24/23 22:59 06:59 14:59 Other: Weight 58.967 kg Results 04/24/23 03:23 04/23/23 20:20 Cardiac Enzymes 04/23/23 04/23/23 04/23/23 Range/Units 20:20 20:20 23:15 AST 25 (14-36) U/L Troponin I <0.012 <0.012 (0.000-0.034) ng/mL 04/24/23 Range/Units 03:23 AST (14-36) U/L Troponin I <0.012 (0.000-0.034) ng/mL Coagulation 04/23/23 04/24/23 Range/Units 20:20 03:23 PT 9.6 (9.0-12.0) sec APTT 24.1 49.4 H (22.0-30.0) sec CBC 04/23/23 04/24/23 Range/Units 20:20 03:23 WBC 9.9 (3.8-10.6) k/uL RBC 5.20 (3.80-5.40) m/uL Hgb 15.0 (11.4-16.0) gm/dL Hct 47.7 H (34.0-46.0) % Plt Count 247 214 (150-450) k/uL Comprehensive Metabolic Panel 04/23/23 Range/Units 20:20 Sodium 142 (137-145) mmol/L Potassium 4.2 (3.5-5.1) mmol/L Chloride 108 H (98-107) mmol/L Carbon Dioxide 24 (22-30) mmol/L BUN 18 H (7-17) mg/dL Creatinine 0.68 (0.52-1.04) mg/dL Glucose 95 (74-99) mg/dL Calcium 9.6 (8.4-10.2) mg/dL AST 25 (14-36) U/L ALT 21 (4-34) U/L Alkaline Phosphatase 119 (38-126) U/L Total Protein 7.7 (6.3-8.2) g/dL Albumin 4.6 (3.5-5.0) g/dL Current Medications Generic Name Dose Route Start Last Admin Trade Name Freq PRN Reason Stop Dose Admin Aspirin 325 mg 04/24/23 09:00 Aspirin 325 Mg Tab PO DAILY FAM Cyclobenzaprine HCl 10 mg 04/24/23 08:09 Cyclobenzaprine 10 Mg Tab PO HS PRN Muscle Spasm Diltiazem HCl 125 mg/ Sodium 125 mls @ 5 mls/hr 04/23/23 20:30 04/23/23 20:35 Chloride IV 5 mg/hr .Q24H FAM 5 mls/hr Administration 5 MG/HR Heparin Sodium/Sodium Chloride 250 mls @ 7.076 mls/hr 04/23/23 22:00 04/23/23 22:19 25,000 unit/ Sodium Chloride IV 12 units/kg/hr .Q24H FAM 7.076 mls/hr Administration Protocol 12 UNITS/KG/HR Melatonin 5 mg 04/23/23 23:46 04/23/23 23:54 Melatonin 5 Mg Tablet PO 5 mg HS PRN Administration Insomnia Intake and Output 04/23/23 04/24/23 04/24/23 22:59 06:59 14:59 Other: Weight 58.967 kg 04/24/23 03:23 04/23/23 20:20
--- NOTE | 2023-04-24 12:08 | P.HPIM ---
History of Present Illness H&P Date: 04/24/23 Patient initially admitted to wrong hospitalist group, we were notified of admission at 8:00 AM on 04/24/23. History of Presenting Illness: Patient is a very pleasant 67-year-old female with a past medical history of COPD, rheumatoid arthritis on Abetacept, nicotine dependence, anxiety, depression, and bladder cancer status post surgical treatment. Patient prese nted to the emergency department with a chief complaint of palpitations. She reported she has experienced this sensation a couple of times in the past so we seemed to go away quickly. Patient reports just prior to arrival yesterday evening she developed sudden onset palpitations which were persistent and accompanied by severe nausea, so she came to the ER for evaluation. Patient states she is unclear whether or not she actually had chest pain because she always has chronic pain to her sternal area secondary to all of her comorbidities and cervical and thoracic disc bulging. She denies having any headache, lightheadedness, dizziness, shortness of breath, episodes of vomiting, or experiencing any numbness/tingling/weakness/swelling in her extremities. Upon arrival to the emergency department, patient underwent full evaluation. Initial EKG confirming atrial fibrillation showing atrial fibrillation with RVR at 155 bpm upon personal review and interpretation. Chest x-ray completed, l ungs appear clear and radiology report stating negative for acute cardiopulmonary process. Labs completed and reviewed. CBC and coags, and CMP were unremarkable. Troponin negative at less than 0.012 TSH 1.40 and free T3 4 0.5. Patient was given a Cardizem bolus and started on Cardizem infusion along with heparin infusion for anticoagulation. She was admitted to the hospital overnight and we were notified of admission at 8 AM as patient was initially admitted under wrong hospitalist team. Troponins were trended overnight all negative at less than 0.0123 draws. Repeat EKG completed s this morning howing sinus bradycardia at 59 bpm with no noted T-wave or ST abnormalities showing no signs of acute ischemia upon personal review and interpretation. Review of systems: Pertinent positives and negatives as discussed in HPI, a complete review of systems was performed and all other systems are negative. Physical exam: Vital signs reviewed and stable. General: Nontoxic, no distress and appears stated age. Derm: Skin warm and dry, normal coloration for ethnicity. Head: Atraumatic, normocephalic and symmetric. Eyes: EOMs intact, no lid lag, and anicteric sclera Mouth: no lip lesions, mucus membranes moist Cardiovascular: regular rate and rhythm with normal S1S2, no murmur, positive posterior tibial pulses bilaterally, and cap refill < 2 seconds. Lungs: Respirations even, regular, and unlabored on room air. Lungs CTA bilaterally, no rhonchi, no rales, no wheezing, and no accessory muscle usage. Abdominal: soft, nontender to palpation, no guarding, no appreciable org anomegaly Ext: ROM intact. No gross muscle atrophy, no edema, no contractures Neuro: Speech clear, face symmetrical and CN II-XII grossly intact with no noted focal neuro deficits Psych: Alert and oriented to person, place, time, and situation. Appropriate and pleasant affect. Assessment and Plan of Care: New-onset atrial fibrillation with RVR -Initial EKG confirming atrial fibrillation showing atrial fibrillation with RVR at 155 bpm upon personal review and interpretation. -Chest x-ray completed, lungs appear clear and radiology report stating negative for acute cardiopulmonary process. -Labs completed and reviewed. CBC and coags, and CMP were unremarkable. Troponin negative at less than 0.012 TSH 1.40 and free T3 4 0.5. -Patient was admitted to the hospital overnight and we were notified of admission at 8 AM as patient was initially admitted under wrong hospitalist team. -Troponins were trended overnight all negative at less than 0.0123 draws. -Repeat EKG completed s this morning howing sinus bradycardia at 59 bpm with no noted T-wave or ST abnormalities showing no signs of acute ischemia upon personal review and interpretation. -Cardiology consulted, appreciate further recommendations -Telemetry monitoring -Patient currently on heparin infusion at 7.076 mL/hr. initially requiring Cardizem infusion at 5 mg per hour, however RVR was controlled and patient conv erted back into sinus mechanism and Cardizem infusion was stopped this morning. -Echocardiogram COPD with continued nicotine dependence -COPD not in acute exacerbation. Patient encouraged on importance of smoking cessation and nicotine patch to be provided. Rheumatoid arthritis Continue with Flexeril 10 mg nightly as needed for muscle spasms as well as Abetacept The patient is admitted with an anticipated less than 2 midnight stay for evaluation of new-onset atrial fibrillation with RVR. CODE STATUS: Full code DVT prophylaxis: heparin Discussed with: Patient and RN Anticipated discharge date: 24-[address]: Home Patient was seen independently by Nurse Practitioner. This document was prepared using [employer] dictation software. Please allow for errors in oil and gas recruiter while rare they do occur. I reviewed the documentation as provided by the DONALD above, who is the original author of this note. I agree with the documented assessment and plan, with the following changes: none Past Medical History Past Medical History: Cancer, COPD, Rheumatoid Arthritis (RA) Additional Past Medical History / Comment(s): BLADDER CANCER History of Any Multi-Drug Resistant Organisms: None Reported Past Surgical History: Bladder Surgery, Section, Cholecystectomy, Orthopedic Surgery, Tubal Ligation Additional Past Surgical History / Comment(s): SURGERY SX FOR BLADDER CANCER. COLONOSCOPY/EGD. RT WRIST TENDON TRANSFER. RT KNEE SX Past Anesthesia/Blood Transfusion Reactions: Postoperative Nausea & Vomiting (PONV) Past Psychological History: Anxiety, Depression Smoking Status: Current every day smoker Past Alcohol Use History: None Reported Past Drug Use History: None Reported - Past Family History Mother Family Medical History: No Reported History Medications and Allergies Home Medications Medication Instructions Recorded Confirmed Type Naproxen Sodium [Aleve] 220 mg PO BID PRN 06/17/19 04/23/23 History Abatacept [Orencia] 125 mg SQ WE 04/23/23 04/23/23 History Acetaminophen Tab [Tylenol Tab] 1,000 mg PO Q6H PRN 04/23/23 04/23/23 History Cyclobenzaprine [Flexeril] 10 mg PO HS PRN 04/23/23 04/23/23 History Allergies Allergy/AdvReac Type Severity Reaction Status Date / Time No Known Allergies Allergy Verified 04/23/23 22:52 Physical Exam Osteopathic Statement: *. No significant issues noted on an osteopathic structural exam other than those noted in the History and Physical/Consult. Vitals: Vital Signs Temp Pulse Pulse Resp BP BP Pulse Ox 04/24/23 08:00 98.4 F 62 17 107/62 99 04/24/23 04:00 63 14 103/62 96 04/24/23 01:00 65 16 97/58 94 L 04/23/23 23:00 69 16 106/60 96 04/23/23 20:00 85 16 104/69 97 04/23/23 19:57 87 04/23/23 19:50 98.7 F 167 H 18 125/73 98 Intake and Output 04/23/23 04/24/23 04/24/23 22:59 06:59 14:59 Other: Weight 58.967 kg Results CBC & Chem 7: 04/24/23 03:23 04/23/23 20:20 Labs: Abnormal Lab Results - Last 24 Hours (Table) 04/23/23 04/23/23 04/24/23 Range/Units 20:20 20:20 03:23 Hct 47.7 H (34.0-46.0) % APTT 49.4 H (22.0-30.0) sec Chloride 108 H (98-107) mmol/L BUN 18 H (7-17) mg/dL
[2023-04-24] MEDS: NICOTINE 21MG/24HR PATCH TRANSDERM SCH (13:44)
[2023-04-24 16:19] VITALS: RESP 16
[2023-04-24] MEDS ORDERED: traMADol 50 MG TAB PO PRN (20:48)
[2023-04-25 08:09] LABS: Mean Platelet Volume 8.6; Platelet Count 256 k/uL (150-450)
[2023-04-25] MEDS: APIXABAN 5 MG TAB PO SCH (09:00)
[2023-04-25] MEDS: NICOTINE 21MG/24HR PATCH TRANSDERM SCH (09:00)
[2023-04-25] MEDS: METOPROLOL TARTRATE 25 MG TAB PO SCH (09:00)
[2023-04-25 09:10] VITALS: TEMP 97.8
--- NOTE | 2023-04-25 11:55 | P.PN ---
Subjective HISTORY OF PRESENT ILLNESS: This is a 67-year-old female with a past medical history significant for rheumatoid arthritis. Patient follows in the office with Dr. Davila. We have been asked to see the patient in consultation for atrial fibrillation. Patient examined at the bedside. Patient presented to the hospital with a chief complaint of palpitations. She states that she felt sick to her stomach, shaky, and very anxious. She states that she checked her watch and noted her heart rate to be high. She denied any cough or fever. She denied any chest pain or pressure. Denied any syncope. She denies a prior history of hypertension, hyperlipidemia, or diabetes. She denies any alcohol use. She is a current serv ice smoker. She states last year her primary care physician thought she had atrial fibrillation she was referred to see Dr. Davila. Patient underwent a Holter monitor which revealed 2 refer on to of nonsustained atrial tachycardia, PVCs, and PACs. No atrial fibrillation was noted at that time. * EKG reveals atrial fibrillation with RVR. Subsequent EKG reveals sinus mechanism * Chest xray negative for acute process * Laboratory data: WBC 9.9. Hemoglobin 15.0. Platelet count 247. Sodium 142. Potassium 4.2. BUN 18. Creatinine 0.68. Troponin negative 3. TSH 1.550. * Current home cardiac medications include none * Most recent echocardiogram obtained in February 2022 revealed ejection fraction 50- 55% * Patient underwent Lexiscan stress test in December 2021 which was negative for ischemia 04/25/2023 Patient examined this morning. She is sitting up in a chair. Patient denies chest pain or pressure prior to denies shortness of breath. Telemetry reveals sinus mechanism. Patient states that she is having some generalized pain from her rheumatoid arthritis that she usually takes ibuprofen daily for this. She has been instructed not to take ibuprofen daily now with combination of anticoagulation. PHYSICAL EXAM: VITAL SIGNS: Reviewed. GENERAL: Well-developed in no acute distress. HEENT: Head is normocephalic. Pupils are equal, round. Sclerae anicteric. Mucous membranes of the mouth are moist. Neck supple. No JVD or thyromegaly LUNGS: Respirations even and unlabored. Lungs essentially clear to auscultation bilaterally. HEART: Regular rate and rhythm. S1 and S2 heard. ABDOMEN: Soft. Nondistended. Nontender. EXTREMITIES: Normal range of motion. No clubbing or cyanosis. Peripheral pulses intact. No lower extremity edema NEUROLOGIC: Awake and alert. Oriented x 3. ASSESSMENT: Palpitations New-onset atrial fibrillation with RVR, currently maintaining sinus mechanism History of atrial tachycardia, PVCs, and PACs Rheumatoid arthritis PLAN: Continue current cardiac medications including metoprolol and Eliquis Patient instructed not to take NSAIDS with Eliquis due to increased risk of bleeding. Patient verbalized understanding. The patient may be discharged home today from a cardiac standpoint Patient is to follow up outpatient with Dr. Davila Nurse practitioner note has been reviewed by physician. Signing provider agrees with the documented findings, assessment, and plan of care. Objective - Vital Signs Vital signs: Vital Signs Temp 97.8 F 04/25/23 08:00 Pulse 77 04/25/23 08:00 Resp 16 04/25/23 08:00 BP 124/71 04/25/23 08:00 Pulse Ox 96 04/25/23 09:28 FiO2 Intake & Output 04/24/23 04/25/23 04/25/23 18:59 06:59 18:59 Intake Total 480 1120 20 Balance 480 1120 20 Weight 58.967 kg Intake: IV 40 20 Invasive Line 1 20 10 Invasive Line 2 20 10 Oral 480 1080 0 Other: Voiding Method Toilet Toilet # Voids 1 - Labs CBC & Chem 7: 04/25/23 07:45 04/23/23 20:20
[2023-04-25 12:25] VITALS: BP 128/67; PULSE 53
--- NOTE | 2023-04-25 13:00 | P.DS ---
Providers Date of admission: 04/23/23 21:47 Expected date of discharge: 04/25/23 Attending physician: Branden Carpenter MD Consults: 04/23/23 21:47 Consult Physician Urgent Consulting Provider: Saba Case Consult Reason/Comments: a fib Do you want consulting provider notified?: Yes Primary care physician: Paul Villanueva Hospital Course: New-onset atrial fibrillation with RVR COPD with continued nicotine dependence Rheumatoid arthritis Hospital Course: Patient is a very pleasant 67-year-old female with a past medical history of COPD, rheumatoid arthritis on Abetacept, nicotine dependence, anxiety, depression, and bladder cancer status post surgical treatment. Patient presented to the emergency department with a chief complaint of palpitations. Upon arrival to the emergency department, patient underwent full evaluation. Initial EKG confirming atrial fibrillation showing atrial fibrillation with RVR at 155 bpm upon personal review and interpretation. Chest x-ray completed, lungs appear clear and radiology report stating negative for acute cardiopulmonary process. Labs completed and reviewed. CBC and coags, and CMP were unremarkable. Troponin negative at less than 0.012 TSH 1.40 and free T3 4 0.5. Patient was given a Cardizem bolus and started on Cardizem infusion along with heparin infusion for anticoagulation. She was admitted to the hospital overnight and we were notified of admission at 8 AM as patient was initially admitted under wrong hospitalist team. Troponins were trended overnight all negative at less than 0.0123 draws. Repeat EKG completed s this morning howing sinus bradycardia at 59 bpm with no noted T-wave or ST abnormalities showing no signs of acute ischemia upon personal review and interpretation. Patient was seen by cardiology, who recommended echocardiogram. They transitioned her heparin drip to Apixiban, stopped Diltia some drip, started metoprolol. Patient return to normal sinus rhythm. She was discharged home with instructions to follow-up with cardiology. Regarding pain control, she was prescribed gabapentin, lidocaine patch, tramadol and recommended to follow up with pain management upon discharge. Gen: awake, alert HEENT: normocephalic, atraumatic, good hearing acuity, moist mucous membranes Resp: good air exchange, breathing comfortably with no accessory muscle use CVS: good distal perfusion x 4, GI: soft, NTTP, ND : no SPT, no CVAT, parmar catheter not present MSK: no pitting edema, no clubbing Neuro: non-focal, moving all extremities Psych: cooperative, euthymic mood Patient Condition at Discharge: Good Plan - Discharge Summary Discharge Rx Participant: No New Discharge Prescriptions: New Metoprolol Tartrate [Lopressor] 25 mg PO BID #60 tab traMADol HCl [Ultram] 50 mg PO TID PRN #9 tab PRN Reason: Pain Apixaban [Eliquis] 5 mg PO BID #60 tab Nicotine 21Mg/24Hr Patch [Habitrol] 1 patch TRANSDERM DAILY #30 patch Gabapentin [Neurontin] 100 mg PO BID 10 Days #20 cap Continue Naproxen Sodium [Aleve] 220 mg PO BID PRN PRN Reason: Pain Cyclobenzaprine [Flexeril] 10 mg PO HS PRN PRN Reason: Muscle Spasm Abatacept [Orencia] 125 mg SQ WE Acetaminophen Tab [Tylenol] 1,000 mg PO Q6H PRN PRN Reason: Pain Discharge Medication List Naproxen Sodium [Aleve] 220 mg PO BID PRN 06/17/19 [History] Abatacept [Orencia] 125 mg SQ WE 04/23/23 [History] Acetaminophen Tab [Tylenol] 1,000 mg PO Q6H PRN 04/23/23 [History] Cyclobenzaprine [Flexeril] 10 mg PO HS PRN 04/23/23 [History] Apixaban [Eliquis] 5 mg PO BID #60 tab 04/25/23 [Rx] Gabapentin [Neurontin] 100 mg PO BID 10 Days #20 cap 04/25/23 [Rx] Metoprolol Tartrate [Lopressor] 25 mg PO BID #60 tab 04/25/23 [Rx] Nicotine 21Mg/24Hr Patch [Habitrol] 1 patch TRANSDERM DAILY #30 patch 04/25/23 [Rx] traMADol HCl [Ultram] 50 mg PO TID PRN #9 tab 04/25/23 [Rx] Follow up Appointment(s)/Referral(s): Ralph Davila MD [STAFF PHYSICIAN] - 1 Week None,Stated [REFERRING] - 1-2 days Patient Instructions/Handouts: A-fib (Atrial Fibrillation) (DC) Discharge Disposition: HOME SELF-CARE
[2023-04-25 13:57] VITALS: BMI 22.2
--- NOTE | 2023-04-25 17:09 | CA ---
Transthoracic Echo Report Name: Leia Mckoy Age: 67 Gender: F : 1955 Exam Date: 04/25/2023 10:11 Exam Location: [facility] Ht (in): 62 Wt (lb): 130 Ordering Physician: Devan Ramirez DO Attending/Referring Phys: Supervisor [employer] Elias Pretty Procedure CPT: Indications: a fib Cardiac Hx: Technical Quality: Fair Contrast 1: Total Dose (mL): Contrast 2: Total Dose (mL): MEASUREMENTS (Male / Female) Normal Values 2D ECHO LV Diastolic Diameter PLAX 4.2 cm 4.2 - 5.9 / 3.9 - 5.3 cm LV Systolic Diameter PLAX 3.2 cm IVS Diastolic Thickness 0.8 cm 0.6 - 1.0 / 0.6 - 0.9 cm LVPW Diastolic Thickness 0.9 cm 0.6 - 1.0 / 0.6 - 0.9 cm LV Relative Wall Thickness 0.4 RV Internal Dim ED PLAX 2.5 cm LVOT Diameter 2.0 cm Aortic Root Diameter 2.5 cm LA Systolic Diameter LX 2.5 cm 3.0 - 4.0 / 2.7 - 3.8 cm LV Diastolic Volume MOD BP 35.1 cm??? 67 - 155 / 56 - 104 cm??? LV Systolic Volume MOD BP 11.9 cm??? 22 - 58 / 19 - 49 cm??? LV Ejection Fraction MOD BP 66.1 % >= 55 % LV Diastolic Volume MOD 4C 50.9 cm??? LV Systolic Volume MOD 4C 18.6 cm??? LV Ejection Fraction MOD 4C 63.3 % LV Diastolic Length 4C 6.8 cm LV Systolic Length 4C 5.8 cm LV Diastolic Volume MOD 2C 22.4 cm??? LV Systolic Volume MOD 2C 7.2 cm??? LV Ejection Fraction MOD 2C 68.1 % LV Diastolic Length 2C 6.3 cm LV Systolic Length 2C 5.4 cm LA Volume 51.5 cm??? 18 - 58 / 22 - 52 cm??? Ascending Aorta Diameter 2.6 cm DOPPLER AV Peak Velocity 96.2 cm/s AV Peak Gradient 3.7 mmHg LVOT Peak Velocity 75.9 cm/s LVOT Peak Gradient 2.3 mmHg AV Area Cont Eq pk 2.5 cm??? MR Peak Velocity 499.6 cm/s MR Peak Gradient 99.8 mmHg Mitral E Point Velocity 82.6 cm/s Mitral A Point Velocity 110.1 cm/s Mitral E to A Ratio 0.8 MV Deceleration Time 277.7 ms TR Peak Velocity 213.4 cm/s TR Peak Gradient 18.2 mmHg Right Ventricular Systolic Press 23.2 mmHg PV Peak Velocity 80.6 cm/s PV Peak Gradient 2.6 mmHg FINDINGS Left Ventricle Normal LV size and wall thickness. Left ventricular ejection fraction is estimated at 50-55 %. Right Ventricle Normal right ventricular size. Right Atrium Normal right atrial size. Left Atrium Normal left atrial size. Mitral Valve Structurally normal mitral valve. Mild MR. Aortic Valve Trileaflet aortic valve. No aortic valve stenosis or regurgitation. Tricuspid Valve Structurally normal tricuspid valve. Mild TR. Pulmonic Valve Pulmonic valve not well visualized. No pulmonic regurgitation. Pericardium Normal pericardium. Aorta Normal size aortic root and proximal ascending aorta. CONCLUSIONS Normal LV function Mild mitral regurgitation Previewed by: Antoine Lynch MD Dr. Suresh Tumma MD (Electronically Signed) Final Date: 25 April 2023 17:08
== END 2023-04-25 16:49 | disposition home or self-care (01) ==
LOC: EC 19:45 → 3SCARD 21:47 → INTOOBSV 21:47 → 3SCARD 22:25 → UNDODISIN 04-25 16:49
PROVIDERS: ADMIT Student in an Organized Health Care Education/Training Program; ATTEND Student in an Organized Health Care Education/Training Program
DX: I48.91 Unspecified atrial fibrillation (principal); R00.0 Tachycardia, unspecified; J44.9 Chronic obstructive pulmonary disease, unspecified; M06.9 Rheumatoid arthritis, unspecified; F41.9 Anxiety disorder, unspecified; F32.A Depression, unspecified; F17.200 Nicotine dependence, unspecified, uncomplicated; Z85.51 Personal history of malignant neoplasm of bladder; Z79.52 Long term (current) use of systemic steroids; Z79.899 Other long term (current) drug therapy
CPT/HCPCS: 96376; 96368; 96365; 96366 ×2; 99291; 36415; 94760; 93005 ×2; 93306; 84439; 84481; 80061; 80053; 82533; 83735; 84443; 84484 ×2; 85025; 85049 ×2; 85610; 85730 ×2; 71046; G0378 ×3; S4990 ×2; J1644 ×2

== ENCOUNTER → 2023-06-13 | Outpatient (CLI) | payer MEDICARE ==
--- NOTE | 2023-06-18 08:23 | MM ---
Reason for Exam: Screening (asymptomatic). Last mammogram was performed 2 year(s) and 7 month(s) ago. Patient History: Menarche at age 15. First Full-Term at age 22. Postmenopausal. Other cancer, age 62. 03/21/2016, MG discontinued stereo core RT on the right side. Paternal grandmother had breast cancer. Risk Values: Renee 5 year model risk: 1.4%. NCI Lifetime model risk: 4.6%. Prior Study Comparison: 02/10/2016 Screening Mammogram, Unknown. 02/14/2016 Screening Mammogram, Unknown. 09/06/2017 Bilateral Diagnostic Mammogram, [facility]. Tissue Density: The breast tissue is heterogeneously dense. This may lower the sensitivity of mammography. Findings: Analyzed By CAD. There is no suspicious group of microcalcifications or new suspicious mass in either breast. There is no suspicious group of microcalcifications or new suspicious mass in either breast. Benign-appearing calcifications bilaterally. Overall Assessment: Benign, BI-RAD 2 Management: Screening Mammogram of both breasts in [address] [facility] will attempt to contact patient to return for supplemental views and ultrasound if indicated. Patient should continue monthly self-breast exams. A clinical breast exam by your physician is recommended on an annual basis. This exam should not preclude additional follow-up of suspicious palpable abnormalities. Note on Renee scores and lifetime risk: 1. A Renee score greater than 3% is considered moderate risk. If this is the case, consider specialist referral to assess eligibility for a risk reducing agent. 2. If overall lifetime risk for the development of breast cancer is 20% or higher, the patient may qualify for future screening with alternating mammogram and breast MRI. Electronically signed and approved by: Lucas Liang DO
== END | disposition home or self-care (01) ==
LOC: RADMAMWWP 13:38
PROVIDERS: ATTEND Family Medicine
DX: Z12.31 Encounter for screening mammogram for malignant neoplasm of breast (principal); Z78.0 Asymptomatic menopausal state; Z80.3 Family history of malignant neoplasm of breast
CPT/HCPCS: 77063; 77067

== ENCOUNTER → 2023-09-02 | Outpatient (CLI) | payer MEDICARE ==
[2023-09-02 16:15] LABS: African American GFR (CKD) >90 (>60 ml/min/1.73 sqM); Blood Urea Nitrogen 24 mg/dL (7-17); Non-African American GFR(CKD) 90 (>60 ml/min/1.73 sqM)
--- NOTE | 2023-09-03 08:28 | CT ---
EXAMINATION TYPE: CT abdomen w con DATE OF EXAM: 09/02/2023 COMPARISON: 05/24/2022 HISTORY: LUQ abdominal pain that radiates across upper stomach, intermittent x months CT DLP: 312.4 mGycm CONTRAST: CT scan of the abdomen is performed without Oral Contrast and with IV Contrast, patient injected with 100 cc mL of Isovue 370. FINDINGS: LUNG BASES-: No visible nodule. No infiltrate. Linear basilar atelectasis or parenchymal scarring. LIVER/GB: The gallbladder is surgically absent. There is mild hepatic steatosis redemonstrated. No space occupying hepatic lesion. Biliary tree is of normal caliber. PANCREAS: No inflammation. No distinct mass. SPLEEN: No splenic enlargement. No lesion seen. ADRENALS: No nodule. No thickening. KIDNEYS/BLADDER: No hydronephrosis. No nephrolithiasis. No distinct renal mass. Urinary bladder g rossly unremarkable. BOWEL: Normal appendix. Normal bowel caliber. No inflammation. LYMPH NODES: No greater than 1cm abdominal or pelvic lymph nodes are appreciated. AORTA: No significant abnormality. OSSEOUS STRUCTURES: Severe degenerative disc space narrowing seen. OTHER: No significant additional abnormality is seen. IMPRESSION: 1. No pancreatic mass is visualized at this time. 2. Mild hepatic steatosis.
== END | disposition home or self-care (01) ==
LOC: RADCTMAIN 15:12
PROVIDERS: ATTEND Family Medicine
DX: K76.0 Fatty (change of) liver, not elsewhere classified (principal); K86.2 Cyst of pancreas
CPT/HCPCS: 82565; 84520; 74160; 36415; Q9967

== ENCOUNTER 2025-01-18 10:17 | Outpatient (CLI) | payer MEDICARE ==
[2025-01-18] MEDS: DENOSUMAB 60 MG/ML 1 ML SYRINGE SQ NR (10:38)
[2025-01-18 10:45] VITALS: BP 139/87; PULSE 77; RESP 16; TEMP 98
== END 2025-01-18 12:50 | disposition home or self-care (01) ==
LOC: PROCWHC3 10:17
PROVIDERS: ATTEND Internal Medicine Rheumatology
DX: M81.0 Age-related osteoporosis without current pathological fracture (principal)
CPT/HCPCS: 96372; J0897

== ENCOUNTER 2025-01-22 13:31 | Day surgery (SDC) | payer MEDICARE ==
[2025-01-21 11:29] VITALS: BMI 25.3
[2025-01-22 14:03] VITALS: TEMP 99.4
[2025-01-22] MEDS: LACTATED RINGERS 1,000 ML IV SCH (14:07)
[2025-01-22] MEDS: IV FLUID CONTINUATION 1,000 ML IV ONE (14:07)
[2025-01-22] MEDS: LIDOCAINE 1% (10MG/ML) FOR IV START INTRADERMA STA (14:07)
[2025-01-22] MEDS ORDERED: LIDOCAINE 2% (PF) 20 MG/ML 5 ML VIAL ONE (14:46)
[2025-01-22] MEDS ORDERED: PROPOFOL 10 MG/ML 20 ML VIAL IV ONE (14:46)
--- NOTE | 2025-01-22 15:09 | P.PCN ---
Date of Procedure: 01/22/25 Procedure(s) Performed: Brief history: Patient is a pleasant 69-year-old white female scheduled for an elective upper endoscopy as well as colonoscopy as a part of evaluation of GERD and screening for colon cancer Procedure performed: Esophagogastroduodenoscopy with biopsy Colonoscopy with snare polypectomy Preoperative diagnosis: GERD Screening for colon cancer Anesthesia: MAC Procedure: After informed consent was obtained from the patient was brought into the endoscopy unit and IV sedation was administered by anesthesia under continuous monitoring. Initially upper endoscopy was done. The Olympus GF 160 video endoscope was inserted inserted into the mouth and esophagus intubated without any difficulty and was gradually advanced into the stomach and duodenum and carefully examined. The bulb had mild duodenitis and second part of the duodenum appeared normal. The scope was then withdrawn into the stomach adequately insufflated with air and upon careful examination the antrum had patchy areas of erythema consistent with gastritis and biopsies were done from this area. Mucosa of the body, cardia and fundus appeared normal. The scope was then withdrawn into the esophagus. Small hiatal hernia. The GE junction was located at 40 cm to the incisors. It appeared regular with no erythema erosions or ulcerations. Rest of the esophagus appeared normal. Patient tolerated the procedure well. At this time the patient continued to remain sedation. Initial digital rectal examination was normal. Olympus CF 160 video colonoscope was then inserted into the rectum and gradually advanced to the cecum without any difficulty. Careful examination was performed as the scope was gradually being withdrawn. The prep was excellent. The cecum, ascending colon, transverse colon, descending colon, appeared normal. In the distal sigmoid colon there was a 1 cm polyp removed by snare polypectomy. Scattered sigmoid diverticulosis seen. Sigmoid colon and rectum appeared normal. Retroflexion was performed in the rectum and no lesions were noted. Patient tolerated the procedure well. Impression: 1. Upper endoscopy revealed mild antral gastritis, duodenitis and small hiatal hernia 2. Colonoscopy revealed 1 cm distal sigmoid colon polyp status post polypectomy and scattered sigmoid diverticulosis Recommendations: Findings of this examination were discussed with the patient as well as her family. She was advised to follow-up with the biopsy results. Use [id number] H2 blockers as needed for reflux symptoms. If the biopsy reveals adenoma she can have repeat colonoscopy in 3 years.
[2025-01-22 15:18] VITALS: PULSE 82
[2025-01-22] MEDS: ONDANSETRON 4 MG/2 ML VIAL IVP STA (15:23)
[2025-01-22 15:38] VITALS: BP 116/68; RESP 16
== END 2025-01-22 16:04 | disposition home or self-care (01) ==
LOC: ORWHC2ENDO 13:31
PROVIDERS: ATTEND Internal Medicine Gastroenterology
DX: Z12.11 Encounter for screening for malignant neoplasm of colon (principal); D12.5 Benign neoplasm of sigmoid colon; K57.30 Diverticulosis of large intestine without perforation or abscess without bleeding; K29.50 Unspecified chronic gastritis without bleeding; K29.80 Duodenitis without bleeding; K21.9 Gastro-esophageal reflux disease without esophagitis; K44.9 Diaphragmatic hernia without obstruction or gangrene; I48.91 Unspecified atrial fibrillation; I10 Essential (primary) hypertension; F17.200 Nicotine dependence, unspecified, uncomplicated; Z79.01 Long term (current) use of anticoagulants; Z79.899 Other long term (current) drug therapy; Z85.51 Personal history of malignant neoplasm of bladder
CPT/HCPCS: 45385; 43239; 88305; J2405; J2704; J2003